=== PATIENT | female | born 1945 | race Caucasian/White ===

== ENCOUNTER → 2018-03-31 17:08 | Outpatient (CLI) | payer OTHER, SELFPAY ==
[2018-03-31 18:09] LABS: Hemoglobin A1C% w Est Avg Glu 5.5 % (4.0-6.0)
[2018-03-31 18:14] LABS: Alanine Aminotransferase 16 IU/L (9-52); Albumin Globulin Ratio 1.1 (1.0-2.8); Alkaline Phosphatase 73 U/L (38-126); Aspartate Aminotransferase 22 IU/L (14-36); BUN Creatinine Ratio 33.8 (6-22); Bilirubin Total 0.3 mg/dL (0.2-1.3); Blood Urea Nitrogen 27 mg/dL (7-17); Calcium 8.9 mg/dL (8.4-10.2); Carbon Dioxide 29 mmol/L (22-32); Chloride 102 mmol/L (98-107); Creatinine Urine Random 37.4 mg/dL; Estimated Glomerular Filt Rate > 60.0 mL/min (>60); Globulin 3.5 g/dL (1.7-4.1); Glucose 87 mg/dL (80-110); HEMOLYSIS < 15 (0-50); Potassium 4.4 mmol/L (3.4-5.1); Sodium 141 mmol/L (137-145); Total Protein 7.5 g/dL (6.3-8.2)
[2018-03-31 18:25] LABS: Microalbumin Urine Random < 0.6 mg/dL (0-1.6)
== END ==
PROVIDERS: Family Provider Physician Assistant; PCP Physician Assistant; Visit Provider Physician Assistant
DX: I10 Essential (primary) hypertension (principal); R73.01 Impaired fasting glucose; E66.01 Morbid (severe) obesity due to excess calories
CPT/HCPCS: 80053; 82043; 82570; 83036

== ENCOUNTER → 2018-08-09 14:01 | Outpatient (CLI) | payer OTHER, SELFPAY ==
--- NOTE | 2018-08-09 14:03 | DI.RAD.S_ITS ---
PROCEDURE: XR WRIST LT MIN 3V INDICATIONS: wrist pain and deformity TECHNIQUE: 4 views of the wrist were acquired. COMPARISON: [facility], , WRIST MINIMUM 3 VIEWS LEFT, 03/23/2011, 12:35. FINDINGS: Bones: Prominent degenerative changes are identified involving the joints of the wrist which has resulted in difficulty evaluating for subtle fractures. No displaced fracture or dislocation is identified. There are severe degenerative changes present involving the distal radioulnar joint and basal joints of the thumb. There also are prominent degenerative changes of the capitolunate joint. Deformity of the distal radius probably is related to previous injury. Widening of the scapholunate joint is noted. No suspicious osseous lesions or dislocations are evident. Degenerative changes involving the metacarpophalangeal and interphalangeal joints of the image portions of the hand are present. Soft tissues: No suspicious soft tissue calcifications. However, chondrocalcinosis probably is present within it the radiocarpal joint. There may be subcutaneous edema about the wrist. IMPRESSION: 1. No displaced/acute fractures of the wrist. 2. Advanced degenerative changes involving the basal joints of the thumb and distal radial ulnar joint. Dictated by: Santosh Starr M.D. on 08/09/2018 at 13:17 Approved by: Santosh Starr M.D. on 08/09/2018 at 13:20
== END ==
PROVIDERS: Family Provider Physician Assistant; PCP Physician Assistant; Visit Provider Physician Assistant
DX: M25.532 Pain in left wrist (principal); M19.042 Primary osteoarthritis, left hand
CPT/HCPCS: 73110

== ENCOUNTER → 2019-03-28 12:50 | Outpatient (CLI) | payer OTHER, SELFPAY ==
--- NOTE | 2019-03-28 | DI.MG.S_ITS ---
BILATERAL DIGITAL SCREENING MAMMOGRAM 3D/2D WITH CAD: 03/28/2019 CLINICAL: Routine screening. Family history of breast cancer. Comparison is made to exams dated: 03/24/2017 mammogram, 12/30/2015 mammogram, and 01/08/2015 mammogram - [facility]. There are scattered fibroglandular elements in both breasts. Current study was also evaluated with a Computer Aided Detection (CAD) system. No significant masses, calcifications, or other findings are seen in either breast. There has been no significant interval change. IMPRESSION: NEGATIVE There is no mammographic evidence of malignancy. A 1 year screening mammogram is recommended. This exam was interpreted at Station ID: [id number]. NOTE: For mammograms, a report in lay terms will be sent to the patient. Approximately 15% of breast malignancies will not be visualized mammographically. In the management of a palpable breast mass, a negative mammogram must not discourage biopsy of a clinically suspicious lesion. Electronically Signed By: Angel pacheco/kenji:03/30/2019 17:14:17 letter sent: Normal Exam ACR BI-RADS Category 1: Negative [id number]
== END ==
PROVIDERS: Family Provider Physician Assistant; PCP Physician Assistant; Visit Provider Physician Assistant
DX: Z12.31 Encounter for screening mammogram for malignant neoplasm of breast (principal); Z80.3 Family history of malignant neoplasm of breast
CPT/HCPCS: 77063; 77067

== ENCOUNTER → 2019-08-02 16:39 | Outpatient (CLI) | payer OTHER, SELFPAY ==
[2019-08-02 17:18] LABS: Alanine Aminotransferase 14 IU/L (<35); Albumin 4.2 g/dL (3.5-5.0); Albumin Globulin Ratio 1.3 (1.0-2.8); Alkaline Phosphatase 62 U/L (38-126); Aspartate Aminotransferase 26 IU/L (14-36); Bilirubin Total 0.7 mg/dL (0.2-1.3); Blood Urea Nitrogen 16 mg/dL (7-17); Calcium 9.3 mg/dL (8.4-10.2); Carbon Dioxide 29 mmol/L (22-32); Chloride 101 mmol/L (98-107); Estimated Glomerular Filt Rate > 60.0 mL/min (>60); Globulin 3.3 g/dL (1.7-4.1); Glucose 98 mg/dL (80-110); HEMOLYSIS < 15 (0-50); Potassium 4.6 mmol/L (3.4-5.1); Sodium 139 mmol/L (137-145); Total Protein 7.5 g/dL (6.3-8.2)
[2019-08-02 18:23] LABS: Microalbumi Creatinin Ratio Ur 46.7 ug/mg CR (<30); Microalbumin Urine Random 6.5 mg/dL (0-1.6)
== END ==
PROVIDERS: PCP Physician Assistant; Visit Provider Physician Assistant
DX: E66.01 Morbid (severe) obesity due to excess calories (principal); I10 Essential (primary) hypertension
CPT/HCPCS: 36415; 80053; 82043; 82570

== ENCOUNTER 2019-08-14 07:32 | Day surgery (SDC) | payer OTHER, SELFPAY ==
[2019-08-14] VITALS (7 sets, daily range): BP systolic 137–180; BP diastolic 67–91; PULSE 63–76; RESP 14–21; TEMP 36.1–36.8; O2SAT 96–99; BMI 49.4
--- NOTE | 2019-08-14 | PATH_ITS ---
[facility] Accession Number: [id number] . 01 Material submitted: . PART A: colon - COLON POLYP AT 75 CM PART B: colon - BIOPSY LESION AT 35 CM . 02 Diagnosis: A. Colon, Polyp at 75 cm, Biopsy: Tubular adenoma. . B. Colon, Lesion at 35 cm, Biopsy: Sessile serrated adenoma. MRV 08/15/2019 1056 Local . 02 Electronically signed: . Urmila Juarez MD, Pathologist NPI- [id number] . 01 Gross description: . Part A: COLON POLYP AT 75 CM: Received in formalin are 3 fragment(s) of casillas, soft tissue measuring 0.1 x 0.1 x 0.1 cm to 0.3 x 0.2 x 0.2 cm submitted entirely in 1 cassette(s) Part B: BIOPSY LESION AT 35 CM: Received in formalin are multiple fragment(s) of casillas, soft tissue measuring 0.1 x 0.1 x 0.1 cm to 0.4 x 0.3 x 0.2 cm submitted entirely in 1 cassette(s) /[facility] [place] 08/14/2019 1925 Local . 02 Pathologist provided ICD-10: D12.6 . 02 CPT . 499051, [id number] Performed at: 01 [facility] [address], [place], [place] [id number] MD Angel Raygoza MD Phone: [phone] Performed at: 02 [facility] [address] [place], [place] [id number] MD Urmila Juarez MD Phone: [phone]
[2019-08-14] MEDS: SODIUM CHLORIDE 0.9% 1,000 ML 200 ML IV (08:20)
--- NOTE | 2019-08-14 08:49 | PM.HP.1 ---
History of Present Illness History of Present Illness Date Patient Seen: 08/14/19 Time Patient Seen: 08:49 Chief complaint: [id number] Narrative: The patient is a woman here for screening colonoscopy. Her last exam was 3 years ago. Mother had colon cancer and apparently she has had multiple polyps. Patient History Medical History (Updated 05/07/19 @ 15:44 by Kristina Pabon PA-C) Cataract, left eye (Resolved ~06/2016) Colon polyps (Resolved 04/2010) Darier's disease (Chronic) Hypertension (Chronic) Osteoarthritis (Acute ~12/2017) Osteopenia (Chronic ~2016) Renal insufficiency, mild (Chronic ~02/2016) Surgical History (Updated 05/25/18 @ 14:25 by Anahy Wayne LPN) Hx of cataract surgery (Resolved 06/2016) Hx of section (Resolved) Hx of colonoscopy with polypectomy (Resolved 04/2010) Hx of vitrectomy (Resolved) Family & Social History Family History (Updated 05/25/18 @ 14:27 by Anahy Wayne LPN) Father Cancer Mother Cancer Brother Cancer Social History: household members none Tobacco & Substance use: Smoking Status Never smoker alcohol intake never Meds Home Medications and Allergies Home Medications Medication Instructions Recorded Confirmed Type [PROBIOTIC] 1 tab PO QDAY #0 07/19/16 08/14/19 History furosemide 20 mg tablet 20 mg PO DAILY PRN #30 tab 01/31/18 08/14/19 Rx B12 500 mcg PO DAILY #30 tab 04/06/18 08/14/19 Rx tumeric 500 mg PO DAILY #30 tab 04/06/18 08/14/19 Rx vitamin D3 See Rx Instructions .ROUTE 04/06/18 08/14/19 Rx .COMPLEX #30 tab vitamin E See Rx Instructions PO DAILY #30 04/06/18 08/14/19 Rx tab Ocuvite See Rx Instructions .ROUTE .COMPLEX 05/29/18 08/14/19 History telmisartan 40 mg tablet 40 mg PO DAILY #90 tab 07/19/18 08/14/19 Rx fluocinolone and shower cap 0.01 % 0.01 % TOP .PRN #118.28 ml 10/20/18 08/14/19 Rx scalp oil and shower cap ketoconazole 2 % shampoo 1 applictn TOP ONCE PRN ml 02/14/19 08/14/19 History mupirocin 2 % topical ointment 1 applictn TOP BID #30 gram 02/19/19 08/14/19 Rx varicella-zoster gE-AS01B (PF) 50 50 mcg IM ONCE #1 each 05/08/19 08/14/19 Rx mcg/0.5 mL IM susp, kit carvedilol 3.125 mg tablet 3.125 mg PO BID #180 tab 06/18/19 08/14/19 Rx Allergies Allergy/AdvReac Type Severity Reaction Status Date / Time cetirizine Allergy Severe CHEST PAIN Verified 08/14/19 07:48 ELEPHANT SAT ON MY CHEST FOR 2 DAYS amlodipine [AMLODIPINE] Allergy Intermediate Pain in Verified 08/14/19 07:48 fingers/hands procaine Allergy Mild RASH AND Verified 08/14/19 07:48 BLISTERS hydrochlorothiazide AdvReac Severe Renal Verified 08/14/19 07:48 [HYDROCHLOROTHIAZIDE] insufficiency - severe prednisone [PREDNISONE] AdvReac Intermediate Elevated Verified 08/14/19 07:48 blood pressure adhesive [ADHESIVE] AdvReac Mild Bandaids - Verified 08/14/19 07:48 causes redness of skin [place] family Allergy Intermediate BAD RASH Uncoded 08/14/19 07:48 CLASS: 72:00.00 - LOCAL Allergy Unknown PATIENT Uncoded 08/14/19 07:48 ANESTHETICS CAN'T REMEMBER TEGADERM FILM AdvReac Intermediate REDNESS Uncoded 08/14/19 07:48 AND ITCHING Review of Systems Review of Systems ROS Unobtainable: All systems reviewed & are unremarkable except as noted in HPI and below Respiratory Comments: Chronic shortness of breath with exertion Exam Vital Signs (past 8 hours): - 08/14/19 08:09 Temperature 97.3 F L Pulse Rate 76 Respiratory Rate 21 Blood Pressure 180/91 H Pulse Oximetry 97 Oxygen Delivery Method Room Air Narrative Exam Narrative: Morbid obesity in no apparent distress. Her eyes are nonicteric. Lungs are clear to auscultation no rales or rhonchi. Heart regular rate and rhythm without murmur gallop. Abdomen is protuberant soft nontender without obvious mass Assessment & Plan Assessment & Plan narrative: The patient for a screening colonoscopy. I have discussed the procedure with them. Risks of bleeding, perforation which would necessitate major operation, failure to find remove all lesions, the potential tattoo were all discussed. All questions were answered. They wished to proceed.
--- NOTE | 2019-08-14 08:54 | PM.PREOP ---
Pre-operative Note Interval Note History & Physical reviewed/Exam performed by Physician: Yes Changes to H&P: No ASA Class (for procedural sedation): III
[2019-08-14] MEDS: fentaNYL 250 MCG/5 ML INJ IV (09:08)
[2019-08-14] MEDS: MIDAZOLAM 5 MG/5 ML VIAL IV (09:08)
--- NOTE | 2019-08-14 09:29 | PM.OP.ENDO ---
Operative Date/Time/Diagnoses Date of procedure: 08/14/19 Time of procedure: 09:29 Pre-op diagnosis: History of polyps. Last exam 3 years ago. Post-op diagnosis: same Procedure & Clinicians Study performed: Colonoscopy with cold biopsy and hot snare polypectomy Same procedure as scheduled: Yes Procedure Notes SCOAP/Timeout: Perform Procedure in detail: The patient was placed in the left lateral decubitus position and underwent IV sedation directed by the surgeon consisting of fentanyl and Versed. Digital exam was remarkable for decreased sphincter tone. The scope was inserted and advanced through the rectum into the sigmoid, descending, transverse, and ascending colon. Pressure was applied we made our way into the cecum. The cecum was reached identified by the ileocecal valve . The scope was gradually brought out. Polyps were found at 75 cm and 35 cm. Lesion is 75 was removed with cold biopsy forceps and the lesion at 35 was a very unusual appearing lesion. It was raised and flat but almost looked like the contain lacteals. It did not have the typical appearance of a polyp but the mucosa was clearly different than the surroundings. It was removed in pieces with hot snare. The residual was cauterized. The patient was noted to have sigmoid diverticulosis. The scope ultimately was retroflexed in the rectum. The appearance was remarkable for hemorrhoids. The scope was removed and the patient tolerated the procedure well. The prep was very good Scope withdrawal time: 7 minutes(14 total) Sedation minutes: 32 Findings: diverticulosis (Sigmoid) and polyp Specimen(s): other (Polyps) Complications: none Post-procedure Recommendations: Colonscopy in 5 years (If in good health) Follow up: as needed Disposition: PACU
--- NOTE | 2019-08-14 10:14 | SUR.PHASEII ---
pt tolerating juice, denies any pain or discomfort, waiting for discharge orders.
== END 2019-08-14 10:53 | disposition home or self-care (01) ==
PROVIDERS: PCP Physician Assistant; Visit Provider Specialist
PROC: 0DJD8ZZ Inspection of Lower Intestinal Tract, Via Natural or Artificial Opening Endoscopic (ICD-10-PCS; CPT 45378; principal; 2019-08-14 08:45)
DX: Z12.11 Encounter for screening for malignant neoplasm of colon (principal); Z86.010 Personal history of colon polyps; I10 Essential (primary) hypertension; N18.9 Chronic kidney disease, unspecified; K57.30 Diverticulosis of large intestine without perforation or abscess without bleeding; D12.6 Benign neoplasm of colon, unspecified
CPT/HCPCS: 45385; 45380; 99152; 99153; J2250; J3010

== ENCOUNTER → 2020-02-21 10:56 | Outpatient (CLI) | payer OTHER, SELFPAY ==
[2020-02-21 13:03] LABS: Creatinine Urine Random 46.1 mg/dL
[2020-02-21 13:07] LABS: Blood Urea Nitrogen 32 mg/dL (7-17); Calcium 9.5 mg/dL (8.4-10.2); Carbon Dioxide 29 mmol/L (22-32); Chloride 101 mmol/L (98-107); Estimated Glomerular Filt Rate > 60.0 mL/min (>60); Glucose 105 mg/dL (80-110); HEMOLYSIS < 15 (0-50); Potassium 4.4 mmol/L (3.4-5.1); Sodium 138 mmol/L (137-145)
[2020-02-21 13:11] LABS: Microalbumin Urine Random < 0.6 mg/dL (0-1.6)
== END ==
PROVIDERS: PCP Family Medicine; Referring Provider Physician Assistant; Visit Provider Physician Assistant
DX: I10 Essential (primary) hypertension (principal)
CPT/HCPCS: 36415; 80048; 82043; 82570

== ENCOUNTER → 2020-06-24 11:18 | Outpatient (CLI) | payer OTHER, SELFPAY ==
[2020-06-24 12:59] LABS: Cholesterol 155 mg/dL (140-199); HDL Cholesterol 52 mg/dL (40-60); LDL Cholesterol Calculated 83 mg/dL (<100); Triglycerides 99 mg/dL (35-150)
== END ==
PROVIDERS: PCP Family Medicine; Referring Provider Internal Medicine Cardiovascular Disease; Visit Provider Internal Medicine Cardiovascular Disease
DX: I21.4 Non-ST elevation (NSTEMI) myocardial infarction (principal); Z95.5 Presence of coronary angioplasty implant and graft; E78.5 Hyperlipidemia, unspecified
CPT/HCPCS: 36415; 80061

== ENCOUNTER → 2020-07-26 14:30 | Outpatient (CLI) | payer OTHER, MEDICAID, SELFPAY ==
[2020-07-28 07:59] LABS: COVID19 Sendout Not Detected (Not Detect)
== END ==
PROVIDERS: PCP Family Medicine; Visit Provider Physician Assistant
DX: Z11.59 Encounter for screening for other viral diseases (principal)
CPT/HCPCS: 87635

== ENCOUNTER → 2020-07-28 09:09 | Outpatient (CLI) | payer OTHER, MEDICAID, SELFPAY ==
[2020-07-28 10:50] LABS: Alanine Aminotransferase 16 IU/L (<35); Albumin 3.9 g/dL (3.5-5.0); Albumin Globulin Ratio 1.1 (1.0-2.8); Alkaline Phosphatase 67 U/L (38-126); Aspartate Aminotransferase 30 IU/L (14-36); Bilirubin Total 0.9 mg/dL (0.2-1.3); Bilirubin Unconjugated 0.7 mg/dL (0.0-1.1); Cholesterol 114 mg/dL (140-199); Globulin 3.5 g/dL (1.7-4.1); HDL Cholesterol 45 mg/dL (40-60); HEMOLYSIS < 15 (0-50); LDL Cholesterol Calculated 54 mg/dL (<100); Total Protein 7.4 g/dL (6.3-8.2); Triglycerides 73 mg/dL (35-150)
== END ==
PROVIDERS: PCP Family Medicine; Referring Provider Internal Medicine Cardiovascular Disease; Visit Provider Internal Medicine Cardiovascular Disease
DX: I10 Essential (primary) hypertension (principal); E78.5 Hyperlipidemia, unspecified
CPT/HCPCS: 36415; 80061; 80076

== ENCOUNTER → 2020-08-20 12:48 | Outpatient (CLI) | payer OTHER, MEDICAID, SELFPAY ==
[2020-08-20 13:42] LABS: BUN Creatinine Ratio 26.3 (6-22); Blood Urea Nitrogen 20 mg/dL (7-17); Calcium 9.2 mg/dL (8.4-10.2); Carbon Dioxide 33 mmol/L (22-32); Chloride 99 mmol/L (98-107); Estimated Glomerular Filt Rate > 60.0 mL/min (>60); Glucose 94 mg/dL (80-110); HEMOLYSIS < 15 (0-50); Potassium 4.4 mmol/L (3.4-5.1); Sodium 137 mmol/L (137-145)
== END ==
PROVIDERS: PCP Family Medicine; Referring Provider Internal Medicine Cardiovascular Disease; Visit Provider Internal Medicine Cardiovascular Disease
DX: I10 Essential (primary) hypertension (principal)
CPT/HCPCS: 36415; 80048

== ENCOUNTER 2020-09-03 10:30 | Outpatient (RCR) | payer OTHER, MEDICAID, SELFPAY | END 2020-09-03 12:30 | LOC: CAR 10:30 | PROVIDERS: PCP Family Medicine; Referring Provider Internal Medicine Cardiovascular Disease; Visit Provider Internal Medicine Cardiovascular Disease | DX: I21.4 Non-ST elevation (NSTEMI) myocardial infarction (principal); Z95.5 Presence of coronary angioplasty implant and graft | CPT/HCPCS: 93798 ==

== ENCOUNTER → 2020-10-21 14:59 | Outpatient (CLI) | payer OTHER, MEDICAID, SELFPAY ==
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
== END ==
PROVIDERS: PCP Family Medicine; Referring Provider Family Medicine; Visit Provider Family Medicine
DX: E66.09 Other obesity due to excess calories (principal); Z71.3 Dietary counseling and surveillance
CPT/HCPCS: 97802

== ENCOUNTER → 2021-03-17 12:05 | Outpatient (CLI) | payer OTHER, MEDICAID, SELFPAY ==
--- NOTE | 2021-03-17 12:10 | DI.RAD.S_ITS ---
PROCEDURE: XR CERVICAL SPINE 2V OR 3V INDICATIONS: ground level fall, neck pain TECHNIQUE: 4 view(s) of the cervical spine were acquired. COMPARISON: [facility], CR, XR CHEST 1 VIEW, 03/16/2020, 16:52. FINDINGS: Bones: No fractures or dislocations to the T1 level. The lateral masses of C1 appear intact on the odontoid view. No suspicious bony lesions. Multilevel disc degeneration, severe at the C4-C5, C5-C6, C6-C7 and C7-T1 levels. Mild multilevel mid and lower cervical spine facet joint arthropathy and uncovertebral hypertrophy. Soft tissues: No prevertebral soft tissue swelling. Prominence of the right paratracheal soft tissues again noted. IMPRESSION: 1. Loss of lordosis and multilevel spondylosis. 2. Prominence of the right paratracheal soft tissues again noted as was seen on prior chest radiograph which may be related to lymph nodes versus mass such as substernal thyroid. If indicated, chest CT could be performed for further assessment. Dictated by: Avel BELTRAN Interpreted: Tahir Mancuso MD on 03/17/2021 at 13:32 Transcribed by: OPAL on 03/17/2021 at 13:35 Approved by: Tahir Mancuso M.D. on 03/17/2021 at 15:37
== END ==
PROVIDERS: PCP Family Medicine; Referring Provider Nurse Practitioner Family; Visit Provider Nurse Practitioner Family
DX: M47.812 Spondylosis without myelopathy or radiculopathy, cervical region (principal); M50.321 Other cervical disc degeneration at C4-C5 level
CPT/HCPCS: 72040

== ENCOUNTER → 2021-03-30 11:45 | Outpatient (CLI) | payer OTHER, MEDICAID, SELFPAY ==
--- NOTE | 2021-03-30 11:46 | DI.CT.S_ITS ---
PROCEDURE: CT CHEST WO CON INDICATIONS: abnormal xray TECHNIQUE: Noncontrast 5 mm thick sections acquired from the pulmonary apices to the posterior costophrenic angles. 1 mm lung window, 5 mm thick coronal and sagittal and 7 mm axial MIP reformats were then acquired. For radiation dose reduction, the following was used: automated exposure control, adjustment of mA and/or kV according to patient size. COMPARISON: [facility], CR, XR CHEST 1 VIEW, 03/16/2020, 16:52. [facility], CR, XR CERVICAL SPINE 2V OR 3V, 03/17/2021, 12:10. FINDINGS: Image quality: Excellent. Lungs and pleura: No acute air space opacities. No pleural effusions or pneumothorax. Central and peripheral airways are patent and normal in caliber. Mediastinum: Heart size is normal. No pericardial effusion. No mediastinal adenopathy by size criteria. Thoracic aorta and central pulmonary arteries are normal in size. Esophagus is normal in caliber. No hiatal hernia. Densely calcified lymph nodes in the right hilum measures 2.4 x 1.0 cm in total. No pulmonary mass lesion present. Bones and chest wall: No suspicious bony lesions. No vertebral body compression fractures. 1 cm lymph node noted in the left axilla as well. Thyroid gland unremarkable . Abdomen: Visualized upper abdominal solid organs and bowel loops appear normal in the absence of contrast. IMPRESSION: Right paratracheal soft tissue on the prior radiograph corresponds with a tortuous vascularity. Incidental right hilar calcified lymph nodes probably reflects prior granulomatous disease. Incidental 1 cm left axillary node is not enlarged by size criteria but could be followed by ultrasound to assure stability. Dictated by: Harpreet Rome M.D. on 03/30/2021 at 14:02 Approved by: Harpreet Rome M.D. on 03/30/2021 at 14:26
== END ==
PROVIDERS: PCP Family Medicine; Referring Provider Nurse Practitioner Family; Visit Provider Nurse Practitioner Family
DX: R93.89 Abnormal findings on diagnostic imaging of other specified body structures (principal); R91.8 Other nonspecific abnormal finding of lung field
CPT/HCPCS: 71250

== ENCOUNTER → 2021-04-27 12:38 | Outpatient (CLI) | payer OTHER, MEDICAID, SELFPAY ==
[2021-04-27 13:40] LABS: Add Manual Diff / Slide Review NO; Basophils Absolute Auto 0 /uL (0-100); Basophils Percent Auto 0.5 % (0-2); Eosinophils Absolute Auto 100 /uL (0-450); Eosinophils Percent Auto 1.6 % (2-4); Hematocrit 37.5 % (36-46); Hemoglobin 12.3 g/dL (12.0-16.0); Lymphocytes Absolute Auto 1000 /uL (1100-4500); Lymphocytes Percent Auto 21.9 % (25-40); Mean Corpuscular HGB Conc 32.7 % (30-36); Mean Corpuscular Hemoglobin 28.1 PG (26-34); Mean Corpuscular Volume 85.8 fL (80-100); Monocytes Absolute Auto 600 /uL (0-900); Monocytes Percent Auto 13.7 % (3-14); Neutrophils Absolute Auto 2900 /uL (1500-7000); Neutrophils Percent Auto 62.3 % (50-75); Platelet Count 171 X10^3/uL (150-400); Red Blood Cell Count 4.37 X10^6/uL (4.0-5.2); Red Cell Distribution Width 14.9 % (11.6-14.8); White Blood Cell Count 4.6 X10^3/uL (4.5-11.0)
[2021-04-27 14:18] LABS: Alanine Aminotransferase 22 IU/L (<35); Albumin 3.7 g/dL (3.5-5.0); Albumin Globulin Ratio 1.1 (1.0-2.8); Alkaline Phosphatase 80 U/L (38-126); Aspartate Aminotransferase 42 IU/L (14-36); BUN Creatinine Ratio 16.3 (6-22); Bilirubin Total 0.5 mg/dL (0.2-1.3); Blood Urea Nitrogen 13 mg/dL (7-17); Calcium 8.8 mg/dL (8.4-10.2); Carbon Dioxide 30 mmol/L (22-32); Chloride 103 mmol/L (98-107); Estimated Glomerular Filt Rate > 60.0 mL/min (>60); Globulin 3.5 g/dL (1.7-4.1); Glucose 110 mg/dL (80-110); HEMOLYSIS < 15 (0-50); Sodium 137 mmol/L (137-145); Total Protein 7.2 g/dL (6.3-8.2)
== END ==
PROVIDERS: PCP Family Medicine; Referring Provider Family Medicine; Visit Provider Family Medicine
DX: I10 Essential (primary) hypertension (principal); I25.10 Atherosclerotic heart disease of native coronary artery without angina pectoris; R53.83 Other fatigue
CPT/HCPCS: 36415; 80053; 84443; 85025

== ENCOUNTER → 2021-05-02 09:08 | Outpatient (ROUT) | payer OTHER, MEDICAID, SELFPAY ==
[2021-05-02 09:36] LABS: COVID19 -Nasal RAPID POSITIVE (Negative)
== END ==
PROVIDERS: PCP Family Medicine; Visit Provider Physician Assistant
DX: U07.1 COVID-19 (principal)
CPT/HCPCS: 87635

== ENCOUNTER 2021-05-06 14:15 | Inpatient (IN) | payer OTHER, MEDICAID, SELFPAY ==
[2021-05-06] VITALS (15 sets, daily range): BP systolic 122–181; BP diastolic 59–77; PULSE 68–94; RESP 15–33; TEMP 36.5–37.7; O2SAT 91–97; BMI 49.9
--- NOTE | 2021-05-06 14:29 | DI.RAD.S_ITS ---
PROCEDURE: XR CHEST 1V INDICATIONS: Flu like symptoms TECHNIQUE: One view of the chest was acquired. COMPARISON: [facility], CT, CT CHEST WO CON, 03/30/2021, 11:54. FINDINGS: Surgical changes and devices: None. Lungs and pleura: Bilateral peripheral ground-glass infiltrates. No pleural effusions or pneumothorax. Mediastinum: Mediastinal contours appear normal. Heart size is normal. Bones and chest wall: No suspicious bony lesions. Overlying soft tissues appear unremarkable. IMPRESSION: Bilateral peripheral ground-glass infiltrates suspicious for atypical pneumonia. Dictated by: Paco Austin M.D. on 05/06/2021 at 15:34 Approved by: Paco Austin M.D. on 05/06/2021 at 15:35
[2021-05-06 15:04] LABS: Add Manual Diff / Slide Review NO; Basophils Absolute Auto 0 /uL (0-100); Basophils Percent Auto 0.2 % (0-2); Eosinophils Absolute Auto 0 /uL (0-450); Eosinophils Percent Auto 0.4 % (2-4); Hematocrit 40.1 % (36-46); Hemoglobin 13.2 g/dL (12.0-16.0); Lymphocytes Absolute Auto 1200 /uL (1100-4500); Lymphocytes Percent Auto 11.7 % (25-40); Mean Corpuscular HGB Conc 32.9 % (30-36); Mean Corpuscular Hemoglobin 27.4 PG (26-34); Mean Corpuscular Volume 83.3 fL (80-100); Monocytes Absolute Auto 700 /uL (0-900); Monocytes Percent Auto 6.4 % (3-14); Neutrophils Absolute Auto 8500 /uL (1500-7000); Neutrophils Percent Auto 81.3 % (50-75); Platelet Count 211 X10^3/uL (150-400); Red Blood Cell Count 4.81 X10^6/uL (4.0-5.2); Red Cell Distribution Width 14.6 % (11.6-14.8); White Blood Cell Count 10.5 X10^3/uL (4.5-11.0)
--- NOTE | 2021-05-06 15:07 | ED.GENADULT ---
HPI - General Adult General Chief complaint: Shortness of Breath/Dyspnea Stated complaint: Covid +/pneumonia x4days Time Seen by Provider: 05/06/21 14:32 Source: patient and other Mode of arrival: Wheelchair History of Present Illness HPI narrative: Patient is a 75-year-old female. States she started having symptoms approximately 12 days ago. Symptoms started with GI symptoms and potentially some change in taste. She was not tested until approximately 6 days ago when she tested positive for COVID-19. Since that time she has had cough, she has a chronic dermatologic issue that she states has worsened since this time as well. She has been very fatigued. Cannot get up and walk. She was brought to the emergency department today by a friend for what apparently was some shortness of breath at home over the patient thinks that she is not all that short of breath. She denies chest pain. She states that she has been eating and drinking but not as much as she has been. She is unvaccinated against COVID-19. Related Data Home Medications Medication Instructions Recorded Confirmed [PROBIOTIC] 1 tab PO QDAY #0 07/19/16 05/02/21 aspirin 81 mg chewable tablet 81 mg PO DAILY 03/21/20 05/02/21 atorvastatin 40 mg tablet 40 mg PO tab 03/21/20 05/02/21 C,E,zinc,copper [id number] PO 09/24/20 05/02/21 [Ocuvite Adult 50 Plus] cholecalciferol (vitamin D3) PO 09/24/20 05/02/21 cyanocobalamin (vitamin B-12) PO 09/24/20 05/02/21 turmeric PO 09/24/20 05/02/21 vitamin E acetate PO 09/24/20 05/02/21 Previous Rx's Medication Instructions Recorded varicella-zoster glycoE [id number] 50 mcg IM ONCE #1 each 05/08/19 adj(PF) 50 mcg/0.5 mL IM susp, kit (Shingrix (PF)) telmisartan 40 mg tablet See Rx Instructions .ROUTE 09/17/19 .COMPLEX #90 tablet furosemide 20 mg tablet 20 mg PO DAILY PRN #30 tab 10/29/19 betamethasone dipropionate 0.05 % 1 applictn TOP TID PRN #45 gram 01/14/20 topical ointment carvedilol 3.125 mg tablet 3.125 mg PO BID #180 tab 04/07/20 mupirocin 2 % topical ointment See Rx Instructions .ROUTE 05/19/20 .COMPLEX #30 gram clobetasol 0.05 % scalp solution See Rx Instructions .ROUTE 05/21/20 .COMPLEX #50 milliliter azelastine 137 mcg (0.1 %) nasal 1 spray INTRANASAL BID #30 ml 05/02/21 spray aerosol fluocinolone 0.01 % scalp oil and 1 ea TOP .PRN #118.28 ml 05/02/21 shower cap ketoconazole 2 % shampoo 1 applic TOP .Q3DAYS PRN #120 ml 05/02/21 olopatadine 0.2 % eye drops 1 drp EYE-BOTH DAILY PRN #2.5 ml 05/02/21 (Pataday Once Daily Relief) Allergies Allergy/AdvReac Type Severity Reaction Status Date / Time cetirizine Allergy Severe CHEST PAIN Verified 05/06/21 15:43 ELEPHANT SAT ON MY CHEST FOR 2 DAYS adhesive tape Allergy Intermediate Redness of Verified 05/06/21 15:43 Skin amlodipine [AMLODIPINE] Allergy Intermediate Pain in Verified 05/06/21 15:43 fingers/hands dog dander Allergy Intermediate Rash Verified 05/06/21 15:43 procaine Allergy Mild RASH AND Verified 05/06/21 15:43 BLISTERS Anesthetics - Amide Type - Allergy Unknown Verified 05/06/21 15:43 Select A Anesthetics - Valentine Type- Allergy Unknown Verified 05/06/21 15:43 Parabens hydrochlorothiazide AdvReac Severe Renal Verified 05/06/21 15:43 [HYDROCHLOROTHIAZIDE] insufficiency - severe prednisone [PREDNISONE] AdvReac Intermediate Elevated Verified 05/06/21 15:43 blood pressure adhesive [ADHESIVE] AdvReac Mild Bandaids - Verified 05/06/21 15:43 causes redness of skin Review of Systems Constitutional Constitutional: Reports fever(s) and Reports lethargy Eyes Eyes: Reports system reviewed and no additional complaints, except as documented ENT Comments: Decreased in sensation taste Cardiovascular Cardiovascular: Denies chest pain and Reports dyspnea Respiratory Respiratory: Reports cough, Denies pain on inspiration and Reports dyspnea Gastrointestinal Gastrointestinal: Reports system reviewed and no additional complaints, except as documented Genitourinary Genitourinary: Reports system reviewed and no additional complaints, except as documented Musculoskeletal Musculoskeletal: Reports system reviewed and no additional complaints, except as documented Integumentary/Breasts Skin/Breast: Reports as per HPI Neurologic Neurologic: Reports system reviewed and no additional complaints, except as documented Endocrine Endocrine: Reports system reviewed and no additional complaints, except as documented Hematologic/Lymphatic On Anticoagulants: No Allergic/Immunologic Allergic/Immunologic: Reports system reviewed and no additional complaints, except as documented Patient History Medical History Carpal tunnel syndrome of right wrist Cataract, left eye (~06/2016) Cellulitis Colon polyps (04/2010) Coronary artery disease Darier's disease Hypertension Osteoarthritis (~12/2017) Osteopenia (~2016) Renal insufficiency, mild (~02/2016) Surgical History Hx of cataract surgery (06/2016) Hx of section Hx of colonoscopy with polypectomy (04/2010) Hx of vitrectomy Family History Father Cancer Mother Cancer Brother Cancer Social History household members: none Smoking Status: Never smoker second hand exposure: Yes alcohol intake: never substance use type: does not use Smoking Status: Never smoker Exam Initial Vital Signs Initial Vital Signs: Vital Signs Temperature 97.7 F 05/06/21 14:24 Pulse Rate 94 H 05/06/21 14:24 Respiratory Rate 22 05/06/21 14:24 Blood Pressure 124/70 05/06/21 14:24 Pulse Oximetry 92 05/06/21 14:24 Const General: cooperative and comfortable HENVT Head: atraumatic Resp Effort & Inspection: not labored and tachypneic Auscultation: rhonchi and wheezes Cardio Rate: regular rate Rhythm: regular rhythm GI Palpation: soft Skin Other: Patient has a systemic rash. There are areas that are crusting specifically on her forehead and around her eyes. She also has other maculopapular rashes. The seem to be located in the areas under her breast and under her pannus however she also has rash on the abdomen itself. There are no vesicles noted. No pustules noted Neuro General: patient alert, patient awake and moves all extremities Extrem General: capillary refill normal Psych Appearance: grossly normal and well kempt Course Orders Ordered: ED Orders 05/06/21 14:26 EKG-12 Lead Stat 05/06/21 14:27 Measure peak expiratory flow ONCE RT Consult Eval and Treat Now 05/06/21 14:29 XR chest 1V Stat 05/06/21 14:52 Blood Culture Stat 05/06/21 14:53 C-Reactive Protein Quant Stat Complete Blood Count AUTO DIFF Stat Comprehensive Metabolic Panel Stat D Dimer Stat Ferritin Stat Lactate (Lactic Acid) Stat Lactate Dehydrogenase Stat NT-proBNP (BNP-Adult 18+) Stat Procalcitonin Stat Troponin & CK Cardiac Panel Stat 05/06/21 15:44 Wound Culture and Gram Stain Stat Acetaminophen (Acetaminophen 325 Mg Tablet) 650 mg PO Q6HR PRN PRN Reason: Fever/Mild Pain (1-3) Aspirin (Aspirin 81 Mg Chew Tab) 81 mg PO DAILY [facility] Atorvastatin Calcium (Atorvastatin 20 Mg Tablet) 40 mg PO BEDTIME [facility] Dexamethasone (Dexamethasone 10 Mg/Ml Vial) 6 mg IV DAILY [facility] Enoxaparin Sodium (Enoxaparin 40 Mg/0.4 Ml Syringe) 40 mg SUBCUT BID [facility] Remdesivir 100 mg/ Sodium (Chloride) 250 mls @ 250 mls/hr IV DAILY [facility] Stop: 05/09/21 16:23 Ondansetron HCl (Ondansetron 4 Mg/2 Ml Inj) 4 mg IV Q8HR PRN PRN Reason: Nausea And Vomiting Discontinued Medications Dexamethasone (Dexamethasone 10 Mg/Ml Vial) 10 mg IV NOW ONE Stop: 05/06/21 15:41 Last Admin: 05/06/21 16:03 Dose: 10 mg Documented by: JONNIE Sodium Chloride (Normal Saline 0.9%) 1,000 mls @ 125 mls/hr IV CONT JASSON Last Infusion: 05/06/21 17:04 Dose: 125 mls/hr Documented by: Admin: 05/06/21 15:34 Dose: 125 mls/hr Documented by: JONNIE Remdesivir 200 mg/ Sodium (Chloride) 250 mls @ 250 mls/hr IV NOW ONE Stop: 05/06/21 15:41 Last Infusion: 05/06/21 17:05 Dose: 250 mls/hr Documented by: Admin: 05/06/21 16:32 Dose: 250 mls/hr Documented by: JONNIE Vital Signs Vital signs: Vital Signs - 8 hr 05/06/21 14:24 05/06/21 15:15 05/06/21 15:30 Temperature 97.7 F Pulse Rate 94 H 92 H 88 Respiratory Rate 22 33 H 25 H Blood Pressure 124/70 131/70 Pulse Oximetry 92 97 97 Medical Decision Making Lab Data Lab results reviewed: Yes I reviewed the patient's lab results. Result diagrams: 05/06/21 14:53 05/06/21 14:53 Labs: Lab Results 05/06/21 05/06/21 05/06/21 Range/Units 14:12 14:53 14:53 WBC 10.5 (4.5-11.0) X10^3/uL RBC 4.81 (4.0-5.2) X10^6/uL Hgb 13.2 (12.0-16.0) g/dL Hct 40.1 (36-46) % MCV 83.3 (80-100) fL MCH 27.4 (26-34) PG MCHC 32.9 (30-36) % RDW 14.6 (11.6-14.8) % Plt Count 211 (150-400) X10^3/uL Neut % (Auto) 81.3 H (50-75) % Lymph % (Auto) 11.7 L (25-40) % [place] % (Auto) 6.4 (3-14) % Eos % (Auto) 0.4 L (2-4) % Baso % (Auto) 0.2 (0-2) % Neut # (Auto) 8500 H (9743-4638) /uL Lymph # (Auto) 1200 (2137-8806) /uL [place] # (Auto) 700 (0-900) /uL Eos # (Auto) 0 (0-450) /uL Baso # (Auto) 0 (0-100) /uL D-Dimer (<230) ng/mL Sodium 133 L (137-145) mmol/L Potassium 4.1 (3.4-5.1) mmol/L Chloride 96 L (98-107) mmol/L Carbon Dioxide 28 (22-32) mmol/L BUN 30 H (7-17) mg/dL Creatinine 1.06 H (0.52-1.04) mg/dL Estimated GFR 50.4 L (>60) mL/min BUN/Creatinine Ratio 28.3 H (6-22) Glucose 123 H (80-110) mg/dL Lactate (0.7-2.1) mmol/L Calcium 8.3 L (8.4-10.2) mg/dL Ferritin (11-264) ng/mL Total Bilirubin 1.0 (0.2-1.3) mg/dL AST 56 H (14-36) IU/L ALT 23 (<35) IU/L Alkaline Phosphatase 68 (38-126) U/L Lactate Dehydrogenase (313-618) U/L Total Creatine Kinase (30-135) U/L CK-MB (CK-2) (<2.37) ng/mL CK-MB (CK-2) Rel Index (1.5-5.0) % Troponin I (0.01-0.034) ng/mL C-Reactive Protein (<1.0) mg/dL NT-Pro-B Natriuret Pep (<450) pg/mL Total Protein 7.1 (6.3-8.2) g/dL Albumin 3.7 (3.5-5.0) g/dL Globulin 3.4 (1.7-4.1) g/dL Albumin/Globulin Ratio 1.1 (1.0-2.8) Procalcitonin (<0.5) ng/mL Urine Color Yellow Urine Appearance Clear Urine pH 5.0 (4.5-8.0) Ur Specific [place] 1.025 (1.000-1.035) Urine Protein 2+ H (Negative) Urine Glucose (UA) Negative (Negative) g/dL Urine Ketones Trace H (NEGATIVE) Urine Occult Blood Trace-lysed (Negative) Urine Nitrate Negative (Negative) Urine Bilirubin 2+ H (NEGATIVE) Ur Bilirubin Confirm Negative (Negative) Urine Urobilinogen 0.2 (0.2) E.U./dL Ur Leukocyte Esterase Negative (NEGATIVE) Urine RBC None seen (0-5/HPF) Urine WBC None seen (0-5/HPF) Ur Renal Epithelial Cell 1-5/hpf H (0-1/HPF) Amorphous Sediment 2+ Urine Bacteria None seen (None) Granular Casts 1-5/lpf (None) Ur Culture Indicated? Cult not indicated 05/06/21 05/06/21 05/06/21 Range/Units 14:53 14:53 14:53 WBC (4.5-11.0) X10^3/uL RBC (4.0-5.2) X10^6/uL Hgb (12.0-16.0) g/dL Hct (36-46) % MCV (80-100) fL MCH (26-34) PG MCHC (30-36) % RDW (11.6-14.8) % Plt Count (150-400) X10^3/uL Neut % (Auto) (50-75) % Lymph % (Auto) (25-40) % [place] % (Auto) (3-14) % Eos % (Auto) (2-4) % Baso % (Auto) (0-2) % Neut # (Auto) (3138-3927) /uL Lymph # (Auto) (1130-4764) /uL [place] # (Auto) (0-900) /uL Eos # (Auto) (0-450) /uL Baso # (Auto) (0-100) /uL D-Dimer 929 H (<230) ng/mL Sodium (137-145) mmol/L Potassium (3.4-5.1) mmol/L Chloride (98-107) mmol/L Carbon Dioxide (22-32) mmol/L BUN (7-17) mg/dL Creatinine (0.52-1.04) mg/dL Estimated GFR (>60) mL/min BUN/Creatinine Ratio (6-22) Glucose (80-110) mg/dL Lactate 2.1 (0.7-2.1) mmol/L Calcium (8.4-10.2) mg/dL Ferritin (11-264) ng/mL Total Bilirubin (0.2-1.3) mg/dL AST (14-36) IU/L ALT (<35) IU/L Alkaline Phosphatase (38-126) U/L Lactate Dehydrogenase (313-618) U/L Total Creatine Kinase (30-135) U/L CK-MB (CK-2) (<2.37) ng/mL CK-MB (CK-2) Rel Index (1.5-5.0) % Troponin I (0.01-0.034) ng/mL C-Reactive Protein (<1.0) mg/dL NT-Pro-B Natriuret Pep (<450) pg/mL Total Protein (6.3-8.2) g/dL Albumin (3.5-5.0) g/dL Globulin (1.7-4.1) g/dL Albumin/Globulin Ratio (1.0-2.8) Procalcitonin 0.28 (<0.5) ng/mL Urine Color Urine Appearance Urine pH (4.5-8.0) Ur Specific [place] (1.000-1.035) Urine Protein (Negative) Urine Glucose (UA) (Negative) g/dL Urine Ketones (NEGATIVE) Urine Occult Blood (Negative) Urine Nitrate (Negative) Urine Bilirubin (NEGATIVE) Ur Bilirubin Confirm (Negative) Urine Urobilinogen (0.2) E.U./dL Ur Leukocyte Esterase (NEGATIVE) Urine RBC (0-5/HPF) Urine WBC (0-5/HPF) Ur Renal Epithelial Cell (0-1/HPF) Amorphous Sediment Urine Bacteria (None) Granular Casts (None) Ur Culture Indicated? 05/06/21 Range/Units 14:53 WBC (4.5-11.0) X10^3/uL RBC (4.0-5.2) X10^6/uL Hgb (12.0-16.0) g/dL Hct (36-46) % MCV (80-100) fL MCH (26-34) PG MCHC (30-36) % RDW (11.6-14.8) % Plt Count (150-400) X10^3/uL Neut % (Auto) (50-75) % Lymph % (Auto) (25-40) % [place] % (Auto) (3-14) % Eos % (Auto) (2-4) % Baso % (Auto) (0-2) % Neut # (Auto) (3522-1100) /uL Lymph # (Auto) (5143-1638) /uL [place] # (Auto) (0-900) /uL Eos # (Auto) (0-450) /uL Baso # (Auto) (0-100) /uL D-Dimer (<230) ng/mL Sodium (137-145) mmol/L Potassium (3.4-5.1) mmol/L Chloride (98-107) mmol/L Carbon Dioxide (22-32) mmol/L BUN (7-17) mg/dL Creatinine (0.52-1.04) mg/dL Estimated GFR (>60) mL/min BUN/Creatinine Ratio (6-22) Glucose (80-110) mg/dL Lactate (0.7-2.1) mmol/L Calcium (8.4-10.2) mg/dL Ferritin 136 (11-264) ng/mL Total Bilirubin (0.2-1.3) mg/dL AST (14-36) IU/L ALT (<35) IU/L Alkaline Phosphatase (38-126) U/L Lactate Dehydrogenase 765 H (313-618) U/L Total Creatine Kinase 380 H (30-135) U/L CK-MB (CK-2) 3.04 H (<2.37) ng/mL CK-MB (CK-2) Rel Index 0.8 L (1.5-5.0) % Troponin I 0.019 (0.01-0.034) ng/mL C-Reactive Protein 16.4 H (<1.0) mg/dL NT-Pro-B Natriuret Pep 1360 H (<450) pg/mL Total Protein (6.3-8.2) g/dL Albumin (3.5-5.0) g/dL Globulin (1.7-4.1) g/dL Albumin/Globulin Ratio (1.0-2.8) Procalcitonin (<0.5) ng/mL Urine Color Urine Appearance Urine pH (4.5-8.0) Ur Specific [place] (1.000-1.035) Urine Protein (Negative) Urine Glucose (UA) (Negative) g/dL Urine Ketones (NEGATIVE) Urine Occult Blood (Negative) Urine Nitrate (Negative) Urine Bilirubin (NEGATIVE) Ur Bilirubin Confirm (Negative) Urine Urobilinogen (0.2) E.U./dL Ur Leukocyte Esterase (NEGATIVE) Urine RBC (0-5/HPF) Urine WBC (0-5/HPF) Ur Renal Epithelial Cell (0-1/HPF) Amorphous Sediment Urine Bacteria (None) Granular Casts (None) Ur Culture Indicated? Imaging Data Chest x-ray: Radiologist's Impression: [address] [id number] ReportSigned Patient: Cherri Cannon R#: [id number]: 5Acct:[id number]/Sex: 75 / FDate of Service: 05/06/21Loc: [id number] Number: [id number] Procedure: XR chest 1V Ordering Provider: Rowdy Kathleen D.O. PROCEDURE: XR CHEST 1V INDICATIONS: Flu like symptoms TECHNIQUE: One view of the chest was acquired. COMPARISON: [facility], CT, CT CHEST WO CON, 03/30/2021, 11:54. FINDINGS: Surgical changes and devices: None. Lungs and pleura: Bilateral peripheral ground-glass infiltrates. No pleural effusions or pneumothorax. Mediastinum: Mediastinal contours appear normal. Heart size is normal. Bones and chest wall: No suspicious bony lesions. Overlying soft tissues appear unremarkable. IMPRESSION: Bilateral peripheral ground-glass infiltrates suspicious for atypical pneumonia. Dictated by: Paco Austin M.D. on 05/06/2021 at 15:34 Approved by: Paco Austin M.D. on 05/06/2021 at 15:35 ECG Data Attestation: I personally reviewed and interpreted this ECG as follows: Interpretation: Sinus rhythm Ventricular rate 90 to Normal axis Normal QRS Normal QTC No ST T wave changes MDM Narrative Medical decision making narrative: Patient had a positive COVID test and an outside facility 6 days ago. Upon arrival today patient was tachypneic, coughing, oxygen saturations in the low 90s. This did improve out oxygen by nasal cannula. Chest x-ray shows bilateral patchy infiltrates consistent with COVID pneumonia. Patient has a chronic skin condition that appears to have worsened over the past couple days. An area under the left breast was cultured. Will hold on any antibiotics for now. Discussed the case with Dr. Ng who will admit for further evaluation and treatment. Did discuss the need for admission for respiratory support to the patient she expressed understanding and agreement as well. Discharge Plan Departure Patient Disposition: Admitted As Inpatient Clinical Impression: Pneumonia due to 2019-nCoV, Hypoxia, Skin rash Admit Date/Time: 05/06/21 15:41 Admit Provider: Jean Claude Ng
[2021-05-06 15:15] LABS: Lactate (Lactic Acid) 2.1 mmol/L (0.7-2.1)
[2021-05-06 15:16] LABS: Alanine Aminotransferase 23 IU/L (<35); Albumin 3.7 g/dL (3.5-5.0); Albumin Globulin Ratio 1.1 (1.0-2.8); Alkaline Phosphatase 68 U/L (38-126); Aspartate Aminotransferase 56 IU/L (14-36); BUN Creatinine Ratio 28.3 (6-22); Blood Urea Nitrogen 30 mg/dL (7-17); Calcium 8.3 mg/dL (8.4-10.2); Carbon Dioxide 28 mmol/L (22-32); Chloride 96 mmol/L (98-107); Estimated Glomerular Filt Rate 50.4 mL/min (>60); Globulin 3.4 g/dL (1.7-4.1); Glucose 123 mg/dL (80-110); HEMOLYSIS < 15 (0-50); Potassium 4.1 mmol/L (3.4-5.1); Sodium 133 mmol/L (137-145); Total Protein 7.1 g/dL (6.3-8.2)
[2021-05-06 15:28] LABS: D Dimer 929 ng/mL (<230)
[2021-05-06 15:30] LABS: Creatine Kinase 380 U/L (30-135); Lactate Dehydrogenase 765 U/L (313-618)
[2021-05-06] MEDS: SODIUM CHLORIDE 0.9% 1,000 ML 125 ML IV (15:34)
[2021-05-06 15:39] LABS: NT-proBNP (BNP-Adult 18+) 1360 pg/mL (<450); Troponin I 0.019 ng/mL (0.01-0.034)
[2021-05-06 15:41] LABS: C-Reactive Protein Quant 16.4 mg/dL (<1.0)
[2021-05-06 15:42] LABS: CKMB % Relative Index 0.8 % (1.5-5.0); Creatine Kinase MB 3.04 ng/mL (<2.37)
[2021-05-06 15:45] LABS: Procalcitonin 0.28 ng/mL (<0.5)
[2021-05-06 16:02] LABS: Ferritin 136 ng/mL (11-264)
[2021-05-06] MEDS: DEXAMETHASONE 10 MG/ML VIAL IV (16:03)
[2021-05-06] MEDS: REMDESIVIR 200 MG in SODIUM CHLORIDE 0.9% 210 ML 250 ML IV (16:32)
--- NOTE | 2021-05-06 16:38 | PC.NURSE ---
Dr. Robbins (hospitalist) aware of low urine output. Will address up stairs.
--- NOTE | 2021-05-06 16:56 | PC.NURSE ---
Per pt request called Blank Zuñiga [phone] who is neighbor and friend to update on admission.
[2021-05-06 17:00] LABS: Reflexed Lactate in 2 Hours Y
[2021-05-06 17:23] LABS: Bacteria Urine None Seen; RBC Urine None Seen (0-5/HPF); WBC Urine None Seen (0-5/HPF)
[2021-05-06 17:38] LABS: Appearance Urine UA CLEAR; Bilirubin Urine UA 2+ (NEGATIVE); Color Urine UA YELLOW; Glucose Urine UA NEGATIVE (Negative); Ketones Urine UA TRACE (NEGATIVE); Leukocyte Esterase Urine UA NEGATIVE (NEGATIVE); Nitrite Urine UA NEGATIVE (Negative); Occult Blood Urine UA TRACE-LYSED (Negative); Protein Urine UA 2+ (Negative); Specific Gravity Urine UA 1.025 (1.000-1.035); Urobilinogen Urine UA 0.2 E.U./dL (0.2)
[2021-05-06 17:48] LABS: Ictotest Urine Negative (Negative)
[2021-05-06 17:50] LABS: Amorphous Sediment Urine 2+; Culture Indicated Urine Cult Not Indicated; Granular Casts Urine 1-5/LPF; Renal Epithelial Cells Urine 1-5/HPF (0-1/HPF)
--- NOTE | 2021-05-06 18:08 | PM.HP.1 ---
History of Present Illness History of Present Illness Date Patient Seen: 05/06/21 Time Patient Seen: 15:00 Chief complaint: Covid +/pneumonia x4days Narrative: Ms. 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 Apparently 1.5 weeks ago she started feeling symptoms of cough, dry heaving, cough. She was unfortunately not vaccinated per patient because she's a redhead and she was told by her daughter that the immune response is different for redheads. She went to outpatient clinic and was tested positive for COVID on 05/02. She has since developed worsening shortness of breath which led her to present to the ED. In the ED workup was done, vitals noted mild tachycardia in the 90s, respiratory rate in the 20s, pulse ox dropped to the 91% when I took her off oxygen. Labs showed WBC 10.5, creatinine 1.06, lactate 2.1, d-dimer 929, ldh 765, crp 16.4, bnp 1360. UA unremarkable for infection. Chest xray shows bilatera peripheral infiltrates. She was given remdesivir and dexamethasone and admitted for further treatment. Patient History Medical History Carpal tunnel syndrome of right wrist Cataract, left eye (~06/2016) Cellulitis Colon polyps (04/2010) Coronary artery disease Darier's disease Hypertension Osteoarthritis (~12/2017) Osteopenia (~2016) Renal insufficiency, mild (~02/2016) Surgical History Hx of cataract surgery (06/2016) Hx of section Hx of colonoscopy with polypectomy (04/2010) Hx of vitrectomy Family & Social History Family History Father Cancer Mother Cancer Brother Cancer Social History: household members none Tobacco & Substance use: Smoking Status Never smoker alcohol intake never Meds Home Medications and Allergies Home Medications Medication Instructions Recorded Confirmed Type [PROBIOTIC] 1 tab PO QDAY #0 07/19/16 05/02/21 History varicella-zoster glycoE [id number] 50 mcg IM ONCE #1 each 05/08/19 05/02/21 Rx adj(PF) 50 mcg/0.5 mL IM susp, kit (Shingrix (PF)) telmisartan 40 mg tablet See Rx Instructions .ROUTE 09/17/19 05/02/21 Rx .COMPLEX #90 tablet furosemide 20 mg tablet 20 mg PO DAILY PRN #30 tab 10/29/19 05/02/21 Rx betamethasone dipropionate 0.05 % 1 applictn TOP TID PRN #45 gram 01/14/20 05/02/21 Rx topical ointment aspirin 81 mg chewable tablet 81 mg PO DAILY 03/21/20 05/02/21 History atorvastatin 40 mg tablet 40 mg PO tab 03/21/20 05/02/21 History carvedilol 3.125 mg tablet 3.125 mg PO BID #180 tab 04/07/20 05/02/21 Rx mupirocin 2 % topical ointment See Rx Instructions .ROUTE 05/19/20 05/02/21 Rx .COMPLEX #30 gram clobetasol 0.05 % scalp solution See Rx Instructions .ROUTE 05/21/20 05/02/21 Rx .COMPLEX #50 milliliter C,E,zinc,copper [id number] PO 09/24/20 05/02/21 History [Ocuvite Adult 50 Plus] cholecalciferol (vitamin D3) PO 09/24/20 05/02/21 History cyanocobalamin (vitamin B-12) PO 09/24/20 05/02/21 History turmeric PO 09/24/20 05/02/21 History vitamin E acetate PO 09/24/20 05/02/21 History azelastine 137 mcg (0.1 %) nasal 1 spray INTRANASAL BID #30 ml 05/02/21 05/02/21 Rx spray aerosol fluocinolone 0.01 % scalp oil and 1 ea TOP .PRN #118.28 ml 05/02/21 05/02/21 Rx shower cap ketoconazole 2 % shampoo 1 applic TOP .Q3DAYS PRN #120 ml 05/02/21 05/02/21 Rx olopatadine 0.2 % eye drops 1 drp EYE-BOTH DAILY PRN #2.5 ml 05/02/21 05/02/21 Rx (Pataday Once Daily Relief) Allergies Allergy/AdvReac Type Severity Reaction Status Date / Time cetirizine Allergy Severe CHEST PAIN Verified 05/06/21 15:43 ELEPHANT SAT ON MY CHEST FOR 2 DAYS adhesive tape Allergy Intermediate Redness of Verified 05/06/21 15:43 Skin amlodipine [AMLODIPINE] Allergy Intermediate Pain in Verified 05/06/21 15:43 fingers/hands dog dander Allergy Intermediate Rash Verified 05/06/21 15:43 procaine Allergy Mild RASH AND Verified 05/06/21 15:43 BLISTERS Anesthetics - Amide Type - Allergy Unknown Verified 05/06/21 15:43 Select A Anesthetics - Valentine Type- Allergy Unknown Verified 05/06/21 15:43 Parabens hydrochlorothiazide AdvReac Severe Renal Verified 05/06/21 15:43 [HYDROCHLOROTHIAZIDE] insufficiency - severe prednisone [PREDNISONE] AdvReac Intermediate Elevated Verified 05/06/21 15:43 blood pressure adhesive [ADHESIVE] AdvReac Mild Bandaids - Verified 05/06/21 15:43 causes redness of skin Review of Systems Review of Systems Narrative: 14 systems reviewed and negative aside from what is noted in HPI Exam Vital Signs (past 8 hours): - 05/06/21 14:24 05/06/21 15:15 05/06/21 15:30 Temperature 97.7 F Pulse Rate 94 H 92 H 88 Respiratory Rate 22 33 H 25 H Blood Pressure 124/70 131/70 Pulse Oximetry 92 97 97 05/06/21 15:45 05/06/21 16:00 05/06/21 16:01 Temperature Pulse Rate 88 87 91 H Respiratory Rate 24 25 H 27 H Blood Pressure 138/59 L Pulse Oximetry 97 96 97 05/06/21 16:15 05/06/21 16:30 05/06/21 17:20 Temperature 99.8 F H Pulse Rate 80 86 82 Respiratory Rate 31 H 22 20 Blood Pressure 140/66 181/77 H Pulse Oximetry 94 92 92 Oxygen Delivery Method Nasal Cannula Oxygen Flow Rate 0 Narrative Exam Narrative: GEN: mild respiratory distress HEENT: moist mucous membranes, PERRL NECK: trachea midline, no JVD CV: regular rate and rhythm with no murmurs PULM: coarse breath sounds bilaterally ABD: soft, nontender, nondistended, no organomegaly, normal bowel sounds EXT: warm and well perfused with no edema NEURO: awake, alert and oriented, moving all extremities with no noted deficits PSYCH: pleasant, cooperative SKIN: plaquest scattered on her skin including, extremities and face Objective Labs Result Diagrams: 05/06/21 14:53 05/06/21 14:53 Labs: Laboratory Results - last 24 hr 05/06/21 05/06/21 05/06/21 14:12 14:53 14:53 WBC 10.5 RBC 4.81 Hgb 13.2 Hct 40.1 MCV 83.3 MCH 27.4 MCHC 32.9 RDW 14.6 Plt Count 211 Neut % (Auto) 81.3 H Lymph % (Auto) 11.7 L [place] % (Auto) 6.4 Eos % (Auto) 0.4 L Baso % (Auto) 0.2 Neut # (Auto) 8500 H Lymph # (Auto) 1200 [place] # (Auto) 700 Eos # (Auto) 0 Baso # (Auto) 0 D-Dimer Sodium 133 L Potassium 4.1 Chloride 96 L Carbon Dioxide 28 BUN 30 H Creatinine 1.06 H Estimated GFR 50.4 L BUN/Creatinine Ratio 28.3 H Glucose 123 H Lactate Calcium 8.3 L Ferritin Total Bilirubin 1.0 AST 56 H ALT 23 Alkaline Phosphatase 68 Lactate Dehydrogenase Total Creatine Kinase CK-MB (CK-2) CK-MB (CK-2) Rel Index Troponin I C-Reactive Protein NT-Pro-B Natriuret Pep Total Protein 7.1 Albumin 3.7 Globulin 3.4 Albumin/Globulin Ratio 1.1 Procalcitonin Urine Color Yellow Urine Appearance Clear Urine pH 5.0 Ur Specific [place] 1.025 Urine Protein 2+ H Urine Glucose (UA) Negative Urine Ketones Trace H Urine Occult Blood Trace-lysed Urine Nitrate Negative Urine Bilirubin 2+ H Ur Bilirubin Confirm Negative Urine Urobilinogen 0.2 Ur Leukocyte Esterase Negative Urine RBC None seen Urine WBC None seen Ur Renal Epithelial Cell 1-5/hpf H Amorphous Sediment 2+ Urine Bacteria None seen Granular Casts 1-5/lpf Ur Culture Indicated? Cult not indicated 05/06/21 05/06/21 05/06/21 14:53 14:53 14:53 WBC RBC Hgb Hct MCV MCH MCHC RDW Plt Count Neut % (Auto) Lymph % (Auto) [place] % (Auto) Eos % (Auto) Baso % (Auto) Neut # (Auto) Lymph # (Auto) [place] # (Auto) Eos # (Auto) Baso # (Auto) D-Dimer 929 H Sodium Potassium Chloride Carbon Dioxide BUN Creatinine Estimated GFR BUN/Creatinine Ratio Glucose Lactate 2.1 Calcium Ferritin Total Bilirubin AST ALT Alkaline Phosphatase Lactate Dehydrogenase Total Creatine Kinase CK-MB (CK-2) CK-MB (CK-2) Rel Index Troponin I C-Reactive Protein NT-Pro-B Natriuret Pep Total Protein Albumin Globulin Albumin/Globulin Ratio Procalcitonin 0.28 Urine Color Urine Appearance Urine pH Ur Specific [place] Urine Protein Urine Glucose (UA) Urine Ketones Urine Occult Blood Urine Nitrate Urine Bilirubin Ur Bilirubin Confirm Urine Urobilinogen Ur Leukocyte Esterase Urine RBC Urine WBC Ur Renal Epithelial Cell Amorphous Sediment Urine Bacteria Granular Casts Ur Culture Indicated? 05/06/21 14:53 WBC RBC Hgb Hct MCV MCH MCHC RDW Plt Count Neut % (Auto) Lymph % (Auto) [place] % (Auto) Eos % (Auto) Baso % (Auto) Neut # (Auto) Lymph # (Auto) [place] # (Auto) Eos # (Auto) Baso # (Auto) D-Dimer Sodium Potassium Chloride Carbon Dioxide BUN Creatinine Estimated GFR BUN/Creatinine Ratio Glucose Lactate Calcium Ferritin 136 Total Bilirubin AST ALT Alkaline Phosphatase Lactate Dehydrogenase 765 H Total Creatine Kinase 380 H CK-MB (CK-2) 3.04 H CK-MB (CK-2) Rel Index 0.8 L Troponin I 0.019 C-Reactive Protein 16.4 H NT-Pro-B Natriuret Pep 1360 H Total Protein Albumin Globulin Albumin/Globulin Ratio Procalcitonin Urine Color Urine Appearance Urine pH Ur Specific [place] Urine Protein Urine Glucose (UA) Urine Ketones Urine Occult Blood Urine Nitrate Urine Bilirubin Ur Bilirubin Confirm Urine Urobilinogen Ur Leukocyte Esterase Urine RBC Urine WBC Ur Renal Epithelial Cell Amorphous Sediment Urine Bacteria Granular Casts Ur Culture Indicated? Assessment & Plan Assessment & Plan narrative: Ms. Cannon is a 75W who presents with shortness of breath and cough found to have hypoxemia from COVID pneumonia. 1. Acute respiratory failure with hypoxemia from COVID pneumonia - desaturated to 91% on room air at rest - xray consistent with pneumonia, patient covid positive -started on IV remdesivir and dexamethasone -encourage proning -dvt prophylaxis ordered with SCDs and lovenox -for now trend inflammatory markers daily 2. CAD -continue aspirin and statin -patient asymptomatic currently 3. HOME -baseline creatinine 0.76, now up to 1.06 -secondary to covid infection -did get IV fluids in ED, will stop for now -avoid nephrotoxins -check creatinine daily 4. Skin rash -chronic -per patient a vesiculobullous disease, but darier's disease listed in chart -continue home topical medications CODE: DNR Proxy: Urmila Jernigan, Daughter I have utilized all available immediate resources to obtain, update, or review the patient's current medications. Quality MIPS - Admit I confirm the patient?s Advance Care Plan is present, Code status is documented, Surrogate decision maker is in patient?s record [If Yes, STOP here]: Yes
[2021-05-06] MEDS: ATORVASTATIN 20 MG TABLET 40 MG PO (21:42)
[2021-05-06] MEDS: ENOXAPARIN 40 MG/0.4 ML SYRINGE SUBCUT (21:42)
[2021-05-07] VITALS (22 sets, daily range): BP systolic 115–153; BP diastolic 60–73; PULSE 63–83; RESP 15–27; TEMP 36.6–36.8; O2SAT 90–94
[2021-05-07 04:43] LABS: Add Manual Diff / Slide Review NO; Basophils Absolute Auto 0 /uL (0-100); Basophils Percent Auto 0.2 % (0-2); Eosinophils Absolute Auto 0 /uL (0-450); Hematocrit 39.1 % (36-46); Hemoglobin 12.8 g/dL (12.0-16.0); Lymphocytes Absolute Auto 900 /uL (1100-4500); Mean Corpuscular HGB Conc 32.8 % (30-36); Mean Corpuscular Hemoglobin 27.4 PG (26-34); Mean Corpuscular Volume 83.6 fL (80-100); Monocytes Absolute Auto 300 /uL (0-900); Monocytes Percent Auto 3.6 % (3-14); Neutrophils Absolute Auto 6700 /uL (1500-7000); Neutrophils Percent Auto 85.2 % (50-75); Platelet Count 198 X10^3/uL (150-400); Red Blood Cell Count 4.68 X10^6/uL (4.0-5.2); Red Cell Distribution Width 14.9 % (11.6-14.8); White Blood Cell Count 7.8 X10^3/uL (4.5-11.0)
[2021-05-07 04:46] LABS: D Dimer 733 ng/mL (<230)
[2021-05-07 04:51] LABS: Alanine Aminotransferase 23 IU/L (<35); Albumin 3.2 g/dL (3.5-5.0); Alkaline Phosphatase 59 U/L (38-126); Aspartate Aminotransferase 54 IU/L (14-36); BUN Creatinine Ratio 33.7 (6-22); Bilirubin Total 0.7 mg/dL (0.2-1.3); Blood Urea Nitrogen 29 mg/dL (7-17); Calcium 8.1 mg/dL (8.4-10.2); Carbon Dioxide 29 mmol/L (22-32); Chloride 99 mmol/L (98-107); Estimated Glomerular Filt Rate > 60.0 mL/min (>60); Globulin 3.3 g/dL (1.7-4.1); Glucose 140 mg/dL (80-110); HEMOLYSIS < 15 (0-50); Potassium 4.1 mmol/L (3.4-5.1); Sodium 134 mmol/L (137-145); Total Protein 6.5 g/dL (6.3-8.2)
[2021-05-07 04:57] LABS: NT-proBNP (BNP-Adult 18+) 1390 pg/mL (<450)
[2021-05-07 05:23] LABS: Ferritin 125 ng/mL (11-264)
[2021-05-07] MEDS: ASPIRIN 81 MG CHEW TAB PO (09:10)
[2021-05-07] MEDS: ENOXAPARIN 40 MG/0.4 ML SYRINGE SUBCUT ×2 (09:10→21:34)
[2021-05-07] MEDS: DEXAMETHASONE 10 MG/ML VIAL 6 MG IV (09:10)
[2021-05-07] MEDS: REMDESIVIR 100 MG in SODIUM CHLORIDE 0.9% 230 ML 250 ML IV (09:10)
--- NOTE | 2021-05-07 09:23 | CM.DANOTE ---
DCP: Case received, EMR reviewed. Called patient in her room. Introduced self and role over the phone. Was able to obtain information from patient regarding her baseline activity status prior to hospitalization, as well as her current living situation. DCP assessment completed with information currently available. Patient is a 75 year old female who admitted yesterday afternoon to the care of the hospitalist team. PCP: Dr. Amezquita. Payer: confirmed: [facility] [place]. Patient came to the hospital via private vehicle secondary to having increased weakness and shortness of breath. Patient had been tested 6 days ago for COVID, and was positive. Her symptoms had apparently started about 12 days ago. Patient has not been vaccinated. Patient also has history of a skin disorder as well. She has pneumonia. Spoke to patient via phone in her room. Confirmed with patient that she resides here in [facility]. She has a daughter named Urmila Jernigan who resides in [place], and also indicated that she has another daughter in [place]. Patient stated that she is independent at her baseline. She also indicated that she uses a ramp to get into her house, to avoid stairs. She also indicated that she has balance issues, but does not use any DME supplies. She is here for oxygen support as well. P: DCP to continue to follow. Patient should be able to go home when she is deemed medically stable. Estefani Garcia RN/Coat Maker
--- NOTE | 2021-05-07 09:24 | DIET.PN ---
Dietary Progress Note RD Note: 75y F known to RD as pt recently completed Cardiac Rehab and had 1:1 OP nutrition visit secondary to morbid obesity BMI 50. Pt was working on portion control and increasing physical activity routine at home including doing senior exercise tapes 3x/w and stair stepper 50-80 steps. Sending ONS Ensure Max c lunches to support high protein needs in bariatric ONS formula.
--- NOTE | 2021-05-07 13:55 | PM.PN.1 ---
Subjective Subjective Date Patient Seen: 05/07/21 Time Patient Seen: 08:00 Interval history: Today she states she feels slightly better. She remains short of breath with low saturation on oxygen. Exam Vital Signs (past 8 hours): - 05/07/21 06:00 05/07/21 08:00 05/07/21 08:37 Temperature 98.0 F Pulse Rate 65 69 83 Respiratory Rate 15 20 20 Blood Pressure 139/65 Pulse Oximetry 91 92 92 05/07/21 09:56 05/07/21 12:00 05/07/21 12:43 Temperature 98.2 F Pulse Rate 73 73 Respiratory Rate 18 22 22 Blood Pressure 130/60 Pulse Oximetry 91 90 L 94 Oxygen Delivery Method Nasal Cannula Oxygen Flow Rate 3 Narrative Exam Narrative: GEN: mild respiratory distress HEENT: moist mucous membranes, PERRL NECK: trachea midline, no JVD CV: regular rate and rhythm with no murmurs PULM: coarse breath sounds bilaterally ABD: soft, nontender, nondistended, no organomegaly, normal bowel sounds EXT: warm and well perfused with no edema NEURO: awake, alert and oriented, moving all extremities with no noted deficits PSYCH: pleasant, cooperative SKIN: plaques scattered on her skin including, extremities and face Objective Labs Result Diagrams: 05/07/21 04:10 05/07/21 04:10 Labs: Laboratory Results - last 24 hr 05/06/21 05/06/21 05/06/21 14:12 14:53 14:53 WBC 10.5 RBC 4.81 Hgb 13.2 Hct 40.1 MCV 83.3 MCH 27.4 MCHC 32.9 RDW 14.6 Plt Count 211 Neut % (Auto) 81.3 H Lymph % (Auto) 11.7 L [place] % (Auto) 6.4 Eos % (Auto) 0.4 L Baso % (Auto) 0.2 Neut # (Auto) 8500 H Lymph # (Auto) 1200 [place] # (Auto) 700 Eos # (Auto) 0 Baso # (Auto) 0 D-Dimer Sodium 133 L Potassium 4.1 Chloride 96 L Carbon Dioxide 28 BUN 30 H Creatinine 1.06 H Estimated GFR 50.4 L BUN/Creatinine Ratio 28.3 H Glucose 123 H Lactate Calcium 8.3 L Ferritin Total Bilirubin 1.0 AST 56 H ALT 23 Alkaline Phosphatase 68 Lactate Dehydrogenase Total Creatine Kinase CK-MB (CK-2) CK-MB (CK-2) Rel Index Troponin I C-Reactive Protein NT-Pro-B Natriuret Pep Total Protein 7.1 Albumin 3.7 Globulin 3.4 Albumin/Globulin Ratio 1.1 Procalcitonin Urine Color Yellow Urine Appearance Clear Urine pH 5.0 Ur Specific [place] 1.025 Urine Protein 2+ H Urine Glucose (UA) Negative Urine Ketones Trace H Urine Occult Blood Trace-lysed Urine Nitrate Negative Urine Bilirubin 2+ H Ur Bilirubin Confirm Negative Urine Urobilinogen 0.2 Ur Leukocyte Esterase Negative Urine RBC None seen Urine WBC None seen Ur Renal Epithelial Cell 1-5/hpf H Amorphous Sediment 2+ Urine Bacteria None seen Granular Casts 1-5/lpf Ur Culture Indicated? Cult not indicated Nasal Screen MRSA (PCR) 05/06/21 05/06/21 05/06/21 14:53 14:53 14:53 WBC RBC Hgb Hct MCV MCH MCHC RDW Plt Count Neut % (Auto) Lymph % (Auto) [place] % (Auto) Eos % (Auto) Baso % (Auto) Neut # (Auto) Lymph # (Auto) [place] # (Auto) Eos # (Auto) Baso # (Auto) D-Dimer 929 H Sodium Potassium Chloride Carbon Dioxide BUN Creatinine Estimated GFR BUN/Creatinine Ratio Glucose Lactate 2.1 Calcium Ferritin Total Bilirubin AST ALT Alkaline Phosphatase Lactate Dehydrogenase Total Creatine Kinase CK-MB (CK-2) CK-MB (CK-2) Rel Index Troponin I C-Reactive Protein NT-Pro-B Natriuret Pep Total Protein Albumin Globulin Albumin/Globulin Ratio Procalcitonin 0.28 Urine Color Urine Appearance Urine pH Ur Specific [place] Urine Protein Urine Glucose (UA) Urine Ketones Urine Occult Blood Urine Nitrate Urine Bilirubin Ur Bilirubin Confirm Urine Urobilinogen Ur Leukocyte Esterase Urine RBC Urine WBC Ur Renal Epithelial Cell Amorphous Sediment Urine Bacteria Granular Casts Ur Culture Indicated? Nasal Screen MRSA (PCR) 05/06/21 05/06/21 05/07/21 14:53 21:50 04:10 WBC RBC Hgb Hct MCV MCH MCHC RDW Plt Count Neut % (Auto) Lymph % (Auto) [place] % (Auto) Eos % (Auto) Baso % (Auto) Neut # (Auto) Lymph # (Auto) [place] # (Auto) Eos # (Auto) Baso # (Auto) D-Dimer 733 H Sodium Potassium Chloride Carbon Dioxide BUN Creatinine Estimated GFR BUN/Creatinine Ratio Glucose Lactate Calcium Ferritin 136 Total Bilirubin AST ALT Alkaline Phosphatase Lactate Dehydrogenase 765 H Total Creatine Kinase 380 H CK-MB (CK-2) 3.04 H CK-MB (CK-2) Rel Index 0.8 L Troponin I 0.019 C-Reactive Protein 16.4 H NT-Pro-B Natriuret Pep 1360 H Total Protein Albumin Globulin Albumin/Globulin Ratio Procalcitonin Urine Color Urine Appearance Urine pH Ur Specific [place] Urine Protein Urine Glucose (UA) Urine Ketones Urine Occult Blood Urine Nitrate Urine Bilirubin Ur Bilirubin Confirm Urine Urobilinogen Ur Leukocyte Esterase Urine RBC Urine WBC Ur Renal Epithelial Cell Amorphous Sediment Urine Bacteria Granular Casts Ur Culture Indicated? Nasal Screen MRSA (PCR) Negative for mrsa 05/07/21 05/07/21 04:10 04:10 WBC 7.8 RBC 4.68 Hgb 12.8 Hct 39.1 MCV 83.6 MCH 27.4 MCHC 32.8 RDW 14.9 H Plt Count 198 Neut % (Auto) 85.2 H Lymph % (Auto) 11.0 L [place] % (Auto) 3.6 Eos % (Auto) 0.0 L Baso % (Auto) 0.2 Neut # (Auto) 6700 Lymph # (Auto) 900 L [place] # (Auto) 300 Eos # (Auto) 0 Baso # (Auto) 0 D-Dimer Sodium 134 L Potassium 4.1 Chloride 99 Carbon Dioxide 29 BUN 29 H Creatinine 0.86 Estimated GFR > 60.0 BUN/Creatinine Ratio 33.7 H Glucose 140 H Lactate Calcium 8.1 L Ferritin 125 Total Bilirubin 0.7 AST 54 H ALT 23 Alkaline Phosphatase 59 Lactate Dehydrogenase Total Creatine Kinase CK-MB (CK-2) CK-MB (CK-2) Rel Index Troponin I C-Reactive Protein 15.0 H NT-Pro-B Natriuret Pep 1390 H Total Protein 6.5 Albumin 3.2 L Globulin 3.3 Albumin/Globulin Ratio 1.0 Procalcitonin Urine Color Urine Appearance Urine pH Ur Specific [place] Urine Protein Urine Glucose (UA) Urine Ketones Urine Occult Blood Urine Nitrate Urine Bilirubin Ur Bilirubin Confirm Urine Urobilinogen Ur Leukocyte Esterase Urine RBC Urine WBC Ur Renal Epithelial Cell Amorphous Sediment Urine Bacteria Granular Casts Ur Culture Indicated? Nasal Screen MRSA (PCR) PFSH Medical History Carpal tunnel syndrome of right wrist Cataract, left eye (~06/2016) Cellulitis Colon polyps (04/2010) Coronary artery disease Darier's disease Hypertension Osteoarthritis (~12/2017) Osteopenia (~2016) Renal insufficiency, mild (~02/2016) Surgical History Hx of cataract surgery (06/2016) Hx of section Hx of colonoscopy with polypectomy (04/2010) Hx of vitrectomy Family History Father Cancer Mother Cancer Brother Cancer Social History household members: none Smoking Status: Never smoker second hand exposure: Yes alcohol intake: never substance use type: does not use Assessment & Plan Assessment & Plan narrative: Ms. Cannon is a 75W who presents with shortness of breath and cough found to have hypoxemia from COVID pneumonia. 1. Acute respiratory failure with hypoxemia from COVID pneumonia - desaturated to 91% on room air at rest, overnight was 90% on 3-4L of oxygen - xray consistent with pneumonia, patient covid positive -started on IV remdesivir and dexamethasone -encourage proning -dvt prophylaxis ordered with SCDs and lovenox -for now trend inflammatory markers daily 2. CAD -continue aspirin and statin -patient asymptomatic currently 3. HOME, resolved -baseline creatinine 0.76, up to 1.06 no admission, now improving -secondary to covid infection -did get IV fluids in ED, will stop for now -avoid nephrotoxins -check creatinine daily 4. Skin rash -chronic -per patient a vesiculobullous disease, but darier's disease listed in chart -continue home topical medications CODE: DNR Proxy: Urmila Jernigan, Daughter
[2021-05-07] MEDS: MUPIROCIN 22 GM OINT 1 APPLIC TOP ×3 (14:28→21:25)
[2021-05-07] MEDS: ATORVASTATIN 20 MG TABLET 40 MG PO (21:27)
[2021-05-08] VITALS (14 sets, daily range): BP systolic 135–167; BP diastolic 67–84; PULSE 62–73; RESP 18–20; TEMP 36.4–37.2; O2SAT 92–97
[2021-05-08 04:45] LABS: BUN Creatinine Ratio 46.3 (6-22); Blood Urea Nitrogen 37 mg/dL (7-17); Calcium 7.9 mg/dL (8.4-10.2); Carbon Dioxide 31 mmol/L (22-32); Chloride 99 mmol/L (98-107); Estimated Glomerular Filt Rate > 60.0 mL/min (>60); Glucose 159 mg/dL (80-110); HEMOLYSIS < 15 (0-50); Potassium 4.8 mmol/L (3.4-5.1); Sodium 133 mmol/L (137-145)
[2021-05-08 04:47] LABS: Hematocrit 37.1 % (36-46); Hemoglobin 12.4 g/dL (12.0-16.0); Mean Corpuscular HGB Conc 33.3 % (30-36); Mean Corpuscular Hemoglobin 27.7 PG (26-34); Platelet Count 216 X10^3/uL (150-400); Red Blood Cell Count 4.47 X10^6/uL (4.0-5.2); Red Cell Distribution Width 14.5 % (11.6-14.8); White Blood Cell Count 14.7 X10^3/uL (4.5-11.0)
[2021-05-08] MEDS: diphenhydrAMINE 25 MG TABLET PO (06:09)
[2021-05-08] MEDS: ASPIRIN EC 81 MG TABLET PO (08:48)
[2021-05-08] MEDS: ENOXAPARIN 40 MG/0.4 ML SYRINGE SUBCUT ×2 (08:48→20:21)
[2021-05-08] MEDS: DEXAMETHASONE 10 MG/ML VIAL 6 MG IV (08:48)
[2021-05-08] MEDS: SODIUM CHLORIDE 0.9% FLUSH 10 ML IV ×2 (08:49→20:21)
--- NOTE | 2021-05-08 09:55 | PT.IIE ---
Current Diagnoses COVID-19 (05/06/21) Medical History (Last Reviewed 05/06/21 @ 18:30 by Rowdy Kathleen DO) Carpal tunnel syndrome of right wrist Cataract, left eye (~06/2016) Cellulitis Colon polyps (04/2010) Coronary artery disease Darier's disease Hypertension Osteoarthritis (~12/2017) Osteopenia (~2016) Renal insufficiency, mild (~02/2016) Physical Therapy Inpatient Evaluation/Re-Eval M1 PT/OT-IP Prior Functional Status Start: 05/08/21 11:40 Freq: NEEDED Status: Active Protocol: Document 05/08/21 09:55 AB (Rec: 05/08/21 11:56 AB [email or web address]) Medical Review Prior Functional Status Medical History Reviewed Yes Communication able to make needs known Mobility and Gait pt stated that she is independent with all mobilities and ambulation without AD Social History Household Members none Living Arrangements House Number of Floors (Floors) One Floor Number of Stairs To Enter/Railing? ramp to enter Home Environment High Toilet,Walk in Shower, Built-In Shower Seat Home Equipment Hand Held Shower,Grab Bars In Shower Additional Social History Comment pt has an adjustable bed M2 PT-IP Current Condition Start: 05/08/21 11:40 Freq: NEEDED Status: Active Protocol: Document 05/08/21 09:55 AB (Rec: 05/08/21 11:56 AB [email or web address]) Physical Therapy Current Condition Current Condition Evaluation Date 05/08/21 Treatment Diagnosis Covid PNA; difficulty in walking Onset Date 05/06/21 Precautions Other Precautions Covid precautions M3 PT-IP Subjective Start: 05/08/21 11:40 Freq: NEEDED Status: Active Protocol: Document 05/08/21 09:55 AB (Rec: 05/08/21 11:56 AB [email or web address]) Subjective Physical Therapy Visit Type Type Initial Evaluation Visit Start Time 09:55 Visit Stop Time 10:40 Total Visit Minutes 45 Number of FLIGHT RADIO OPERATOR Visits 0 Physical Therapy Visit Comments Patient Comments agreeable to do PT Therapy Pain Assessment Pain When Pain Assessed At Rest Location Back Scale Used pain scale not stated Pain Management Techniques Re-positioning M4 PT-IP Mobility and Gait Start: 05/08/21 11:40 Freq: NEEDED Status: Active Protocol: Document 05/08/21 09:55 AB (Rec: 05/08/21 11:56 AB [id number]) PT-Bed Mobility Assessment Supine to Sit Supine to Sit Standby Assistance Sit to Supine Sit to Supine Standby Assistance PT-Transfer Assessment Sit to and From Stand Sit to and from Stand Standby Assistance,Contact Guard Assistance,1 Person Assistance,Use of Upper Extremities Equipment Transfer Assistive Device Gait Belt,Front Wheeled Walker Orthotic/Prosthetic Devices or Brace: No Transfers Transfer Destination Toilet Transfer Technique ambulated Transfer Ability Level of Assist Contact Guard Assistance,1 Person Assistance Comments Mobility Comments pt sitting on chair and agreeable to do PT. O2 sat with 3 1/2 L : 94-96%. completed sit to stand from chair SBA to CGA and stated that she needs to use the toilet urgently. ambulated to the toilet CGA initially using FWW but pt left the FWW out once she reached the toilet door and ambulated holding on the the wall/grab bar CGA. pt was able to stand CGA while assisted with hygiene care and brief management. pt ambulated out of the toilet to the sink holding on to counter/wall CGA and completed handwashing SBA . ambulated back to chair using FWW SBA to CGA. O2 sat checked 89% but increased to 93% in just a few seconds. pt rested and agreed to ambulate again and completed ~ 35 ft using FWW SBA to CGA using FWW . pt sat on EOB. O2 sat checked: 94% but increased to 93% in ~ 5 sec. completed sit <>supine SBA. agreed to sit on chair and completed transfer SBA using FWW. positioned on chair. call light and table placed within reach. Noted: pt has bouts of coughing during tx session requiring rest breaks. informed nurse regarding pt's mobility. Gait Assessment Gait Gait Assistance Required: Standby Assistance,Contact Guard Assist Distance (Feet) 35 Able to Maintain Weight Bearing Status Yes During Gait Assistive Devices Assistive Device Gait Belt,Front Wheeled Walker Orthotic/Prosthetic Devices or Brace: No Gait Deviations General Gait Pattern Antalgic,Decreased Stride Length,Decreased Feet Clearance,Step-to Gait Factors Limiting Gait Function Factors Limiting Gait Function Decreased Activity Tolerance, Decreased Strength,Pain,Poor Balance,Respiratory Distress Comments Gait Comments pls refer to mobility section for details PT-Balance Assessment Sitting Balance and Reactions Static Sitting Balance Ability Good Dynamic Sitting Balance Ability Good Standing Balance and Reactions Static Standing Balance Ability Fair Dynamic Standing Balance Ability Fair Device Used FWW M5 PT-IP Objective Assessments Start: 05/08/21 11:40 Freq: NEEDED Status: Active Protocol: Document 05/08/21 09:55 AB (Rec: 05/08/21 11:56 AB [id number]) Orientation Orientation/Cognition Level of Alertness Alert Orientation Name,Place,Situation Safety Awareness Decreased Safety Awareness Strength Lower Extremity Strength Assessment Bilaterally Impaired Hip 3/5 Knee 3+/5 Muscle Tone Muscle Tone WNL Yes Other Assessments Other Other Assessments has rashes/sores throughout the body M6 PT-IP Treatment Start: 05/08/21 11:40 Freq: NEEDED Status: Active Protocol: Document 05/08/21 09:55 AB (Rec: 05/08/21 11:56 AB [id number]) Physical Therapy Treatment Education Education Provided Safety M7 PT-IP Assessment and Plan Start: 05/08/21 11:40 Freq: NEEDED Status: Active Protocol: Document 05/08/21 09:55 AB (Rec: 05/08/21 11:56 AB [email or web address]) PT Summary Assessment and Plan Potential Rehabilitation Potential Fair Status of Condition at Evaluation Evolving Summary Impairments Pain,ROM,Strength,Balance, Coordination,Sensation, Cognition,Bed Mobility, Transfers,Gait,Activity Tolerance Assessment Summary pt requiring SBA to CGA but has decrease activity tolerance affecting mobility independence. O2 sat decreased with activity but recovery is good with pt using 3 1/2 L of O2. pt lives alone and will not have any assitance at home. d/c plan depending on progress: SNF vs home with assist. pt will also require a FWW for ambulation at this time. Goals Bed Mobility Goal Independent Transfer Goal Independent,Front Wheeled Walker Gait Goal Independent,Front Wheel Walker Gait Distance 100 Other Goals improve ambulation without AD 150 ft SBA Days to Meet Goals 10 Frequency of Treatment Frequency Of Treatment Once a Day Treatment Plan Physical Therapy Treatment Plan Bed Mobility Training,Transfer Training,Gait Training, Therapeutic Exercise,Balance Retraining,Discharge Planning, Hot or Cold Pack,Neuromuscular Re-ed,Coordination Retraining Precautions Other Precautions Covid precautions Recommendations To Nursing Amount of Assist Needed 1 Person Assist Discharge Recommendations PT Discharge Recommendations Home with Assistance,Home Health,SNF Rehab,Home vs SNF Equipment Needed for Home Before FWW Discharge Transportation Needs at Discharge Private Vehicle,Wheelchair/ Cabulance
--- NOTE | 2021-05-08 10:40 | PM.PN.1 ---
Subjective Subjective Date Patient Seen: 05/08/21 Time Patient Seen: 08:00 Interval history: She feels a little better today, feels stronger. She still has shortness of breath, worse with activity. Exam Vital Signs (past 8 hours): - 05/08/21 03:00 05/08/21 04:00 05/08/21 05:00 Temperature Pulse Rate 68 62 65 Respiratory Rate Blood Pressure Pulse Oximetry 93 93 94 05/08/21 05:25 05/08/21 06:00 05/08/21 09:30 Temperature 98.9 F Pulse Rate 67 69 Respiratory Rate 18 Blood Pressure 152/72 H Pulse Oximetry 94 97 94 05/08/21 10:15 Temperature Pulse Rate 71 Respiratory Rate 18 Blood Pressure 139/84 Pulse Oximetry 95 Oxygen Delivery Method Nasal Cannula Oxygen Flow Rate 4 Narrative Exam Narrative: G: mild respiratory distress HEENT: moist mucous membranes, PERRL NECK: trachea midline, no JVD CV: regular rate and rhythm with no murmurs PULM: coarse breath sounds bilaterally ABD: soft, nontender, nondistended, no organomegaly, normal bowel sounds EXT: warm and well perfused with no edema NEURO: awake, alert and oriented, moving all extremities with no noted deficits PSYCH: pleasant, cooperative SKIN: plaques scattered on her skin including, extremities and face Objective Labs Result Diagrams: 05/08/21 04:10 05/08/21 04:10 Labs: Laboratory Results - last 24 hr 05/08/21 05/08/21 04:10 04:10 WBC 14.7 H D RBC 4.47 Hgb 12.4 Hct 37.1 MCV 83.0 MCH 27.7 MCHC 33.3 RDW 14.5 Plt Count 216 Sodium 133 L Potassium 4.8 Chloride 99 Carbon Dioxide 31 BUN 37 H Creatinine 0.80 Estimated GFR > 60.0 BUN/Creatinine Ratio 46.3 H Glucose 159 H Calcium 7.9 L PFSH Medical History Carpal tunnel syndrome of right wrist Cataract, left eye (~06/2016) Cellulitis Colon polyps (04/2010) Coronary artery disease Darier's disease Hypertension Osteoarthritis (~12/2017) Osteopenia (~2016) Renal insufficiency, mild (~02/2016) Surgical History Hx of cataract surgery (06/2016) Hx of section Hx of colonoscopy with polypectomy (04/2010) Hx of vitrectomy Family History Father Cancer Mother Cancer Brother Cancer Social History household members: none Smoking Status: Never smoker second hand exposure: Yes alcohol intake: never substance use type: does not use Assessment & Plan Assessment & Plan narrative: Ms. Cannon is a 75W who presents with shortness of breath and cough found to have hypoxemia from COVID pneumonia. 1. Acute respiratory failure with hypoxemia from COVID pneumonia - desaturated to 91% on room air at rest, overnight was 90% on 3-4L of oxygen - xray consistent with pneumonia, patient covid positive -started on IV remdesivir and dexamethasone -encourage proning -dvt prophylaxis ordered with SCDs and lovenox -for now trend inflammatory markers daily 2. CAD -continue aspirin and statin -patient asymptomatic currently 3. HOME, resolved -baseline creatinine 0.76, up to 1.06 no admission, now improving -secondary to covid infection -did get IV fluids in ED, will stop for now -avoid nephrotoxins -check creatinine daily 4. 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 Morbid obesity -BMI 50 -likely contributing to severity of disease -encourage working with PT 6. HTN -hold anti-hypertensives for now CODE: DNR Proxy: Urmila Jernigan, Daughter
[2021-05-08] MEDS: REMDESIVIR 100 MG in SODIUM CHLORIDE 0.9% 230 ML 250 ML IV (10:50)
[2021-05-08] MEDS: MUPIROCIN 22 GM OINT 1 APPLIC TOP ×2 (10:50→20:21)
--- NOTE | 2021-05-08 12:23 | OT.IP.EVAL ---
Current Diagnoses COVID-19 (05/06/21) Past Medical History (Last Reviewed 05/06/21 @ 18:30 by Rowdy Kathleen DO) Carpal tunnel syndrome of right wrist Cataract, left eye (~06/2016) Cellulitis Colon polyps (04/2010) Coronary artery disease Darier's disease Hx of cataract surgery (06/2016) Hx of section Hx of colonoscopy with polypectomy (04/2010) Hx of vitrectomy Hypertension Osteoarthritis (~12/2017) Osteopenia (~2016) Renal insufficiency, mild (~02/2016) Surgical History (Last Reviewed 05/06/21 @ 18:15 by JeanC laude Ng MD) Hx of cataract surgery (06/2016) Hx of section Hx of colonoscopy with polypectomy (04/2010) Hx of vitrectomy Occupational Therapy Inpatient Evaluation/Re-Eval M1 PT/OT-IP Prior Functional Status Start: 05/08/21 11:40 Freq: NEEDED Status: Active Protocol: Document 05/08/21 12:59 [facility] (Rec: 05/08/21 13:14 [facility] [id number]) Medical Review Prior Functional Status Medical History Reviewed Yes Communication able to make needs known Mobility and Gait pt stated that she is independent with all mobilities and ambulation without AD Activities of Daily Living and IADL's Completely independent with all her needs of ADl's and IADl needs. Social History Household Members none Living Arrangements House Number of Floors (Floors) One Floor Number of Stairs To Enter/Railing? ramp to enter Home Environment High Toilet,Walk in Shower, Built-In Shower Seat Home Equipment Hand Held Shower,Grab Bars In Shower Additional Social History Comment pt has an adjustable bed M2 OT-IP Current Condition Start: 05/08/21 12:59 Freq: Status: Active Protocol: Document 05/08/21 12:59 [facility] (Rec: 05/08/21 13:14 [facility] [id number]) Occupational Therapy Current Condition Current Condition Evaluation Date 05/08/21 Treatment Diagnosis Acute respiratory failure with hypoxenia from covid PNA, limitation of activities Diagnosis Onset Date 05/06/21 Post Operative Precautions Other Precautions Pt on 4L of O2. M3 OT- IP Subjective and Pain Start: 05/08/21 12:59 Freq: Status: Active Protocol: Document 05/08/21 12:59 [facility] (Rec: 05/08/21 13:14 [facility] [id number]) OT- Subjective Occupational Therapy Visit Type Type Initial Evaluation Visit Start Time 11:50 Visit Stop Time 12:23 Total Visit Minutes 33 Occupational Therapy Visit Comments Patient Comments Pt agreed to get up and use the bathroom. Patient/Caregiver Goals TO go home. OT Pain Assessment Pain When Pain Assessed At Rest Pain Present Pain Present Denied Pain M4 OT- IP ADL's Start: 05/08/21 12:59 Freq: Status: Active Protocol: Document 05/08/21 12:59 [facility] (Rec: 05/08/21 13:14 [facility] [id number]) OT [id number]-[id number] General Evaluation Self-Feeding Ability Independent OT ADL-Grooming General Evaluation Grooming Ability Independent OT ADL-Oral Care General Eval Oral Care Ability Independent OT ADL-Dressing General Eval Lower Body Dressing Ability Minimal Assistance Comments OT Dressing Comments Pt having trouble to don her socks, but states at home will not wear socks. OT ADL-Toileting General Evaluation Toileting Ability Standby Assistance Comments OT Toileting Comments Pt able to do her own hygiene and brief management needs on her own. OT ADL-Bathing Comments OT Bathing Comments NOt performed. M5 OT- IP IADL's Start: 05/08/21 12:59 Freq: Status: Active Protocol: Document 05/08/21 12:59 [facility] (Rec: 05/08/21 13:14 [facility] [id number]) OT-Instrumental Activities of Daily Living Deficits IADL Deficits Identified Deficits Home Safety Awareness Awareness of Need for Assistance at Home Good Awareness Ability to Problem Solve Emergency Able to Problem Solve Situations Home Safety Comments Pt states has a LIfe Alert. Medication Management Medication Management No Deficits Identified Money Management Money Management No Deficits Identified Meal Preparation Meal Preparation Comments Pt aware at she needs to take her time and plans on easing back to do her cooking and chores. Plant Controls Specialist Plant Controls Specialist Comments Would be beneficial for pt to have assist due to her decreased activity tolerance. M6 OT- IP Functional Cognition Start: 05/08/21 12:59 Freq: Status: Active Protocol: Document 05/08/21 12:59 [facility] (Rec: 05/08/21 13:14 [facility] [id number]) Cognitive Factors Limiting Selfcare Function Cognitive Ability Level of Alertness Alert Patient Orientation Name,Age,Birthday,Month,Date, Year,Day of Week,Place, Situation Attention Span Ability Capable of Focused Attention, Capable of Sustained Attention Ability to Follow Commands Able to Follow Multi-Step Commands Memory Description No Deficits Noted Safety Awareness Underestimates Need for Assistance Problem Solving Ability Needs Assist to Identify Solutions Cognitive Comments Cognitive Assessment Comments Pt needing cues for her to manage O2 tubing as it was getting tangled on the FWW. OT- Vision and Hearing OT- Hearing Assessment OT- Hearing Assessment WFL M7 OT- IP Mobility and Balance Start: 05/08/21 12:59 Freq: Status: Active Protocol: Document 05/08/21 12:59 [facility] (Rec: 05/08/21 13:14 [facility] [id number]) OT- Bed Mobility Assessment Supine to Sit Supine to Sit Assist Standby Assistance Sit to Supine Sit to Supine Assist Standby Assistance OT-Transfer Assessment Sit to and From Stand Sit to and from Stand Standby Assistance Transfers Transfer Ability Standby Assistance Technique Transfer Destination Bed,Chair,Toilet Transfer Technique Stand Step Pivot Devices Transfer Assistive Devices None,Gait Belt,Front Wheeled Walker Comments Mobility Comments Pt distant SBA with FWW and occasional assist to help manage the O2 tubing. Pt close SBA to transfer to and from the recliner to bed without a device. Pt on 4L of O2 and at 98% and after activity drops to 91% and after a few deep breaths able to increase to 95 %. OT- Balance Assessment Sitting Balance and Reactions Static Sitting Balance Ability Normal Dynamic Sitting Balance Ability Good Standing Balance and Reactions Static Standing Balance Ability Good Dynamic Standing Balance Ability Fair M8 OT- IP Objective Assessments Start: 05/08/21 12:59 Freq: Status: Active Protocol: Document 05/08/21 12:59 [facility] (Rec: 05/08/21 13:14 [facility] [id number]) OT Gross Range of Motion Upper Extremity Range of Motion Assessment Within Functional Limits OT Strength Upper Extremity Strength Assessment Within Functional Limits M9 OT- IP Assessment and Plan Start: 05/08/21 12:59 Freq: Status: Active Protocol: Document 05/08/21 12:59 [facility] (Rec: 05/08/21 13:14 [facility] [id number]) OT Summary Assessment and Plan Potential Rehabilitation Potential Good Analytic Complexity at Evaluation Moderate Summary OT Impairments Balance,Functional Mobility, Dressing,Bathing,Shower Transfers,Activity Tolerance Progress Towards Goals Progressing Toward Goals Assessment Summary Pt MOD complexity and main barriers are decreased activity tolerance and if having to go home with O2, difficulty to manage the tubing as a fall risk. Pt states lives alone, but has friends and neighbors to assist and also a Life Alert. Pending improvement/progress pt most likely to go home with assist and home health versus possible short skilled rehab. Goals Grooming Goal Independent Dressing Goal Independent Toileting Goal Independent Bathing Goal Independent Toilet Transfer Goal Independent Shower Transfer Goal Independent Days to Meet Goals 3 Frequency of Treatment Frequency Of Treatment Once a Day Treatment Plan OT Treatment Plan ADL Training,Functional Mobility,Patient/Family Education,Discharge Planning Other Treatment Recommendations and Next O2 management during mobility Treatment Focus and ADL needs. Discharge Recommendations OT Discharge Recommendations Home with Assistance,Home Health,SNF Rehab,Home vs SNF Transportation Needs at Discharge Private Vehicle,
--- NOTE | 2021-05-08 14:20 | PC.NURSE ---
PT DOING WELL- ABLE TO BE WEANED DOWN TO 2L NC WITH SPO2 93% HER ROOM AIR SPO2 AT REST WAS 88-89% , COUGH IS PRODUCTIVE AND STRONG- PT DENIES PAIN, AND SKIN IS AT BASELINE AND STOVALL DISCONTINUES- HAS BEEN MOVING BOWELS (INCONT AT TIMES) AND TAKING ADEQUATE DIET- POTENTIAL FOR DISCHARGE TOMORROW IF SHE CONTINUES TO IMPROVE
[2021-05-08] MEDS: ATORVASTATIN 20 MG TABLET 40 MG PO (20:20)
[2021-05-09] VITALS (8 sets, daily range): BP systolic 138–159; BP diastolic 67–91; PULSE 72–89; RESP 18–24; TEMP 36.6–36.9; O2SAT 88–95
[2021-05-09] MEDS: guaiFENesin Solution 100 MG/5 ML UDC 200 MG PO ×2 (01:49→09:00)
[2021-05-09 04:59] LABS: Hematocrit 40.6 % (36-46); Hemoglobin 13.2 g/dL (12.0-16.0); Mean Corpuscular HGB Conc 32.6 % (30-36); Mean Corpuscular Hemoglobin 27.2 PG (26-34); Mean Corpuscular Volume 83.2 fL (80-100); Platelet Count 259 X10^3/uL (150-400); Red Blood Cell Count 4.88 X10^6/uL (4.0-5.2); Red Cell Distribution Width 14.6 % (11.6-14.8); White Blood Cell Count 15.5 X10^3/uL (4.5-11.0)
[2021-05-09 05:17] LABS: BUN Creatinine Ratio 49.3 (6-22); Blood Urea Nitrogen 36 mg/dL (7-17); Calcium 8.3 mg/dL (8.4-10.2); Carbon Dioxide 26 mmol/L (22-32); Chloride 101 mmol/L (98-107); Estimated Glomerular Filt Rate > 60.0 mL/min (>60); Glucose 137 mg/dL (80-110); HEMOLYSIS < 15 (0-50); Potassium 3.8 mmol/L (3.4-5.1); Sodium 134 mmol/L (137-145)
[2021-05-09] MEDS: ASPIRIN EC 81 MG TABLET PO (09:06)
[2021-05-09] MEDS: carvediloL 3.125 MG TABLET PO ×2 (09:06→21:15)
[2021-05-09] MEDS: REMDESIVIR 100 MG in SODIUM CHLORIDE 0.9% 230 ML 250 ML IV (09:07)
--- NOTE | 2021-05-09 10:35 | CM.DPC ---
DCP: continued: case discussed in Team Rounds. OT and PT are now working with pt and Dr. Sommer says she is beginning to approach readiness for d/c. Called into room ex 2026 and spoke with pt by phone. Introduced self and role. Pt clarifies some of her home and family situation and her desired d/c plan. She does have Life Alert system it works only in my home and yard. She has a 4ww walker that she loaned to a friend and is expecting to get that back by the time she is ready for d/c. She says she is very hopeful that she will not be on home supplemental oxygen at d/c. I really don't want to have to drag that cord around with me. She says she has 4 daughters and one son and that daughters Urmila and Erica are the executors of my estate. She is not certain if this includes POA but reiterates that they all know that I don't want any heroics. When it's my time to and will do that. Asked about support when she does go home. She says her daughter Stephany Wolfe: [phone] in [facility] will be coming to stay with her for awhile to help out after she gets home. She says Stephany is currently out of town but is exected back in next day or 2. Stephany is my daughter who is vaccinated so that's why she is the one who will be helping me. Discussed HH services and encouraged consideration of same. She says she has never had this and is not interested in it. She is aware that this would be covered by her [facility]. If pt does need to d/c on oxygen would recommend continuing to encourage HH. Pt says she is very independent in her lifestyle. I love my kids but there are reasons why I prefer not to live with any of them. Went to her window to wave after out conversation and assured her that the team of dc planners would be continuing to follow her case while she was here and would help with her d/c plan as it becomes clearer.
[2021-05-09] MEDS: DEXAMETHASONE 10 MG/ML VIAL 6 MG IV (11:01)
[2021-05-09] MEDS: MUPIROCIN 22 GM OINT 1 APPLIC TOP ×2 (11:01→21:15)
[2021-05-09] MEDS: ENOXAPARIN 40 MG/0.4 ML SYRINGE SUBCUT ×2 (11:01→21:15)
[2021-05-09] MEDS: SODIUM CHLORIDE 0.9% FLUSH 10 ML IV ×2 (11:05→21:16)
--- NOTE | 2021-05-09 14:20 | PM.PN.1 ---
Subjective Subjective Date Patient Seen: 05/09/21 Interval history: Patient is being treated for COVID pneumonia with respiratory failure. She states she is feeling better though still has a cough. She does desaturate to as low as 86% on room air. Exam Vital Signs (past 8 hours): - 05/09/21 07:22 05/09/21 08:30 05/09/21 12:00 Temperature 98.5 F 97.8 F Pulse Rate 89 74 Respiratory Rate 24 22 Blood Pressure 138/81 159/91 H Pulse Oximetry 94 88 L 94 Oxygen Delivery Method Nasal Cannula Oxygen Flow Rate 2 Narrative Exam Narrative: General: Alert pleasant female in no acute distress sitting in chair Lungs: Clear to auscultation Heart: Regular rhythm Abdomen: Soft Extremities: No edema Neurological: Oriented, affect normal Objective Labs Result Diagrams: 05/09/21 04:39 05/09/21 04:39 Labs: Laboratory Results - last 24 hr 05/09/21 05/09/21 04:39 04:39 WBC 15.5 H RBC 4.88 Hgb 13.2 Hct 40.6 MCV 83.2 MCH 27.2 MCHC 32.6 RDW 14.6 Plt Count 259 Sodium 134 L Potassium 3.8 Chloride 101 Carbon Dioxide 26 BUN 36 H Creatinine 0.73 Estimated GFR > 60.0 BUN/Creatinine Ratio 49.3 H Glucose 137 H Calcium 8.3 L PFSH Medical History Carpal tunnel syndrome of right wrist Cataract, left eye (~06/2016) Cellulitis Colon polyps (04/2010) Coronary artery disease Darier's disease Hypertension Osteoarthritis (~12/2017) Osteopenia (~2016) Renal insufficiency, mild (~02/2016) Surgical History Hx of cataract surgery (06/2016) Hx of section Hx of colonoscopy with polypectomy (04/2010) Hx of vitrectomy Family History Father Cancer Mother Cancer Brother Cancer Social History household members: none Smoking Status: Never smoker second hand exposure: Yes alcohol intake: never substance use type: does not use Assessment & Plan Assessment & Plan narrative: Ms. Cannon is a 75W who presents with shortness of breath and cough found to have hypoxemia from COVID pneumonia. 1. Acute respiratory failure with hypoxemia from COVID pneumonia -still dropping O2 sats as low as 86% room air - xray consistent with pneumonia, patient covid positive -started on IV remdesivir and dexamethasone, continue meds -leukocytosis has developed secondary to dexamethasone -encourage proning -dvt prophylaxis ordered with SCDs and lovenox 2. CAD -continue aspirin and statin -patient asymptomatic currently 3. HOME, resolved -baseline creatinine 0.76, up to 1.06 no admission, now improving -secondary to covid infection -did get IV fluids in ED, will stop for now -avoid nephrotoxins 4. 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 Morbid obesity -BMI 50 -likely contributing to severity of disease -encourage working with PT 6. HTN -restarted patient's low-dose carvedilol and telmisartan per home routine CODE: DNR Proxy: Urmila Jernigan, Daughter
--- NOTE | 2021-05-09 14:53 | OT.IPNOTE ---
Pt working with VIRTUALIZATION CONSULTANT at the time as OT coming to see pt. TO check on Pt Tuesday if pt still here, no OT staff available Tuesday.
--- NOTE | 2021-05-09 15:05 | PT.IPTN ---
Current Diagnoses COVID-19 (05/06/21) Physical Therapy Treatment Note M2 PT-IP Current Condition Start: 05/08/21 11:40 Freq: NEEDED Status: Active Protocol: Document 05/08/21 09:55 AB (Rec: 05/08/21 11:56 AB [id number]) Physical Therapy Current Condition Current Condition Evaluation Date 05/08/21 Treatment Diagnosis Covid PNA; difficulty in walking Onset Date 05/06/21 Precautions Other Precautions Covid precautions M3 PT-IP Subjective Start: 05/08/21 11:40 Freq: NEEDED Status: Active Protocol: Document 05/09/21 14:39 CLB (Rec: 05/09/21 15:36 CLB [id number]) Subjective Physical Therapy Visit Type Type Treatment Note Visit Start Time 14:39 Visit Stop Time 15:05 Total Visit Minutes 26 Number of MACHINE ENGRAVER Visits 1 Physical Therapy Visit Comments Patient Comments agreeable to do PT after encouragement Therapy Pain Assessment Pain When Pain Assessed At Rest M4 PT-IP Mobility and Gait Start: 05/08/21 11:40 Freq: NEEDED Status: Active Protocol: Document 05/09/21 14:39 CLB (Rec: 05/09/21 15:36 CLB [id number]) PT-Transfer Assessment Sit to and From Stand Sit to and from Stand Standby Assistance,1 Person Assistance,Use of Upper Extremities Equipment Transfer Assistive Device Gait Belt,Front Wheeled Walker Orthotic/Prosthetic Devices or Brace: No Transfers Transfer Destination Chair,Toilet Transfer Technique ambulated Transfer Ability Level of Assist Standby Assistance,1 Person Assistance,Use of Upper Extremities Comments Mobility Comments Pt in chair upon arrival. Pt on 2L O2 with SpO2 98%. Pt stood SBA and ambulated in room w/FWW/SBA and managed her O2 line. Pt sat on toilet SBA and sachi/doff brief and performed own pericare. Pt ambulated to sink washing hands SBA. Pt then ambulated to door then back to chair sitting SBA. Pt SpO2 after tx 90% increasing to 94% within 1 minute.Pt left in chair with all needs within reach. Gait Assessment Gait Gait Assistance Required: Standby Assistance,1 Person Assist Distance (Feet) 40 Able to Maintain Weight Bearing Status Yes During Gait Assistive Devices Assistive Device Gait Belt,Front Wheeled Walker Orthotic/Prosthetic Devices or Brace: No Gait Deviations General Gait Pattern Antalgic,Decreased Stride Length,Decreased Feet Clearance,Step-to Gait Factors Limiting Gait Function Factors Limiting Gait Function Decreased Activity Tolerance, Decreased Strength,Pain,Poor Balance,Respiratory Distress Comments Gait Comments pls refer to mobility section for details M5 PT-IP Objective Assessments Start: 05/08/21 11:40 Freq: NEEDED Status: Active Protocol: Document 05/08/21 09:55 AB (Rec: 05/08/21 11:56 AB [id number]) Orientation Orientation/Cognition Level of Alertness Alert Orientation Name,Place,Situation Safety Awareness Decreased Safety Awareness Strength Lower Extremity Strength Assessment Bilaterally Impaired Hip 3/5 Knee 3+/5 Muscle Tone Muscle Tone WNL Yes Other Assessments Other Other Assessments has rashes/sores throughout the body M6 PT-IP Treatment Start: 05/08/21 11:40 Freq: NEEDED Status: Active Protocol: Document 05/08/21 09:55 AB (Rec: 05/08/21 11:56 AB [id number]) Physical Therapy Treatment Education Education Provided Safety M7 PT-IP Assessment and Plan Start: 05/08/21 11:40 Freq: NEEDED Status: Active Protocol: Document 05/09/21 14:39 CLB (Rec: 05/09/21 15:36 CLB [id number]) PT Summary Assessment and Plan Potential Rehabilitation Potential Fair Status of Condition at Evaluation Evolving Summary Impairments Pain,ROM,Strength,Balance, Coordination,Sensation, Cognition,Bed Mobility, Transfers,Gait,Activity Tolerance Assessment Summary Pt on 2L with SpO2 ranging from 98-90% during tx. Pt is SBA for all mobility with FWW and is able to manage her own O2 line. Pt lives alone and will not have any assistance at d/c. Goals Bed Mobility Goal Independent Transfer Goal Independent,Front Wheeled Walker Gait Goal Independent,Front Wheel Walker Gait Distance 100 Other Goals improve ambulation without AD 150 ft SBA Days to Meet Goals 10 Frequency of Treatment Frequency Of Treatment Once a Day Treatment Plan Physical Therapy Treatment Plan Bed Mobility Training,Transfer Training,Gait Training, Therapeutic Exercise,Balance Retraining,Discharge Planning, Hot or Cold Pack,Neuromuscular Re-ed,Coordination Retraining Precautions Other Precautions Covid precautions Recommendations To Nursing Amount of Assist Needed 1 Person Assist Discharge Recommendations PT Discharge Recommendations Home with Assistance,Home Health,SNF Rehab,Home vs SNF Equipment Needed for Home Before FWW Discharge Transportation Needs at Discharge Private Vehicle,Wheelchair/ Cabulance
--- NOTE | 2021-05-09 17:51 | PC.NURSE ---
Patient moved from ICU to AC room 208. Patient resting comfortably in chair with 2L NC and sating 95%. Call light and other personal belongings in reach. Droplet precautions initiated due to non-aerosolizing COVID.
--- NOTE | 2021-05-09 17:55 | PC.NURSE ---
rne from [facility] called to check on pt's discharge status after speaking with pt. He states I'm leaving an O2 tank on pt's porch today and she is aware.
[2021-05-09] MEDS: ATORVASTATIN 20 MG TABLET 40 MG PO (21:14)
[2021-05-10] VITALS (10 sets, daily range): BP systolic 128–139; BP diastolic 61–71; PULSE 75–84; RESP 18–20; TEMP 36.2–36.6; O2SAT 92–96
[2021-05-10] MEDS: carvediloL 3.125 MG TABLET PO ×2 (09:31→20:50)
[2021-05-10] MEDS: ENOXAPARIN 40 MG/0.4 ML SYRINGE SUBCUT ×2 (09:31→20:51)
[2021-05-10] MEDS: ASPIRIN EC 81 MG TABLET PO (09:31)
[2021-05-10] MEDS: DEXAMETHASONE 10 MG/ML VIAL 6 MG IV (09:32)
[2021-05-10] MEDS: LOSARTAN 50 MG TABLET PO (09:32)
[2021-05-10] MEDS: REMDESIVIR 100 MG in SODIUM CHLORIDE 0.9% 230 ML 250 ML IV (09:33)
[2021-05-10] MEDS: MUPIROCIN 22 GM OINT 1 APPLIC TOP (09:36)
[2021-05-10] MEDS: SODIUM CHLORIDE 0.9% FLUSH 10 ML IV ×2 (09:37→21:29)
--- NOTE | 2021-05-10 14:10 | PT-OP ANOTE ---
STREAMING MEDIA SPECIALIST unable to see pt for today's tx. Upon arrival to room inquired review with nursing (Mehnaz) proper PPE for safety before entering room, nursing reported spoke with Rosie Domingo (education staff) and unsure why therapy is being asked to see COVID patients and was told didn't feel pt is needing therapy. STREAMING MEDIA SPECIALIST provided benefits of therapy services with nurse and pt is improving after chart reviewing, Mehnaz continued with response there isn't a need for therapy to see her. STREAMING MEDIA SPECIALIST discussed with supervising PT Brenda, nursing's response of declined therapy services for pt, was recommended to discuss with hospitalist Dr Sommer pt's response to therapy improving in mobility and nursing feedback don't feel need for therapy orders to be seeing COVID pts. STREAMING MEDIA SPECIALIST spoke with Dr Sommer and was in agreement pt is improving in mobility and instructed that PT can DC patient from therapy services.
--- NOTE | 2021-05-10 14:33 | PT-IP ANOTE ---
SPIKE MACHINE HEATER unable to see pt for today's tx. Upon arrival to room inquired review with nursing (Mehnaz) proper PPE for safety before entering room, nursing reported spoke with Rosie Domingo (education staff) and unsure why therapy is being asked to see COVID patients and was told didn't feel pt is needing therapy. SPIKE MACHINE HEATER provided benefits of therapy services with nurse and pt is improving after chart reviewing, Mehnaz continued with response there isn't a need for therapy to see her. SPIKE MACHINE HEATER discussed with supervising PT Brenda, nursing's response of declined therapy services for pt, was recommended to discuss with hospitalist Dr Sommer pt's response to therapy improving in mobility and nursing feedback don't feel need for therapy orders to be seeing COVID pts. SPIKE MACHINE HEATER spoke with Dr Sommer and was in agreement pt is improving in mobility and instructed that PT can DC patient from therapy services. SPIKE MACHINE HEATER notified Brenda PT that Dr Sommer in agreement with nursing and to DC pt's therapy orders. PT will completed DC.
--- NOTE | 2021-05-10 16:34 | PM.PN.1 ---
Subjective Subjective Date Patient Seen: 05/10/21 Interval history: 75-year-old female who is being treated for COVID pneumonia with respiratory failure. Patient is feeling better last couple of days but endorses persistent cough. Currently on 2 L NC. She does desaturate to mid to upper 80s on room air with activity. Exam Vital Signs (past 8 hours): - 05/10/21 08:53 05/10/21 09:31 05/10/21 09:32 Temperature 97.1 F L Pulse Rate 81 81 Respiratory Rate 19 Blood Pressure 128/68 128/61 128/61 Pulse Oximetry 93 05/10/21 09:39 05/10/21 11:45 Temperature 97.7 F Pulse Rate 80 75 Respiratory Rate 18 20 Blood Pressure 139/65 Pulse Oximetry 96 Oxygen Delivery Method Nasal Cannula Oxygen Flow Rate 0 Narrative Exam Narrative: General: Alert pleasant female in no acute distress sitting in chair Lungs: Clear to auscultation Heart: Regular rhythm Abdomen: Soft Extremities: No edema Neurological: Oriented, affect normal Objective Labs Result Diagrams: 05/09/21 04:39 05/09/21 04:39 [facility] Medical History Carpal tunnel syndrome of right wrist Cataract, left eye (~06/2016) Cellulitis Colon polyps (04/2010) Coronary artery disease Darier's disease Hypertension Osteoarthritis (~12/2017) Osteopenia (~2016) Renal insufficiency, mild (~02/2016) Surgical History Hx of cataract surgery (06/2016) Hx of section Hx of colonoscopy with polypectomy (04/2010) Hx of vitrectomy Family History Father Cancer Mother Cancer Brother Cancer Social History household members: none Smoking Status: Never smoker second hand exposure: Yes alcohol intake: never substance use type: does not use Assessment & Plan Assessment & Plan narrative: 75W who presents with shortness of breath and cough found to have hypoxemia from COVID pneumonia. 1. Acute respiratory failure with hypoxemia from COVID pneumonia -improving though still requiring 2 L O2 with drops in sat with activity - xray consistent with pneumonia, patient covid positive -started on IV remdesivir and dexamethasone, completed 5 days of remdesivir on 05/10 -leukocytosis has developed secondary to dexamethasone -dvt prophylaxis ordered with SCDs and lovenox -patient has stable slowly improving hospital course and should be stable to discharge home Tuesday with home O2 if necessary 2. CAD -continue aspirin and statin -patient asymptomatic currently 3. HOME, resolved -baseline creatinine 0.76, up to 1.06 no admission, now improving -secondary to covid infection -did get IV fluids in ED, will stop for now -avoid nephrotoxins 4. 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 Morbid obesity -BMI 50 -likely contributing to severity of disease -encourage working with PT 6. HTN -restarted patient's low-dose carvedilol and telmisartan per home routine CODE: DNR Proxy: Urmila Delon, Daughter
[2021-05-10] MEDS: ATORVASTATIN 20 MG TABLET 40 MG PO (20:51)
--- NOTE | 2021-05-10 21:17 | PC.NURSE ---
Pt has had relatively uneventful evening. SpO2 95% 2L Pt continues w/loose cough w/clear mucus sputum up th BR independently. HL right hand intact/patent. Pt sitting in chair. Call light w/in reach, pt calls appropriately for needs. Continue w/plan of care.
[2021-05-11 01:20] VITALS: BP 131/68; PULSE 75; RESP 15; TEMP 36.6; O2SAT 93
[2021-05-11 05:02] VITALS: BP 131/64; PULSE 74; RESP 16; TEMP 36.6; O2SAT 92
[2021-05-11 07:15] VITALS: O2SAT 95
[2021-05-11 08:56] VITALS: BP 131/64
[2021-05-11] MEDS: DEXAMETHASONE 10 MG/ML VIAL 6 MG IV (08:56)
[2021-05-11] MEDS: ENOXAPARIN 40 MG/0.4 ML SYRINGE SUBCUT (08:56)
[2021-05-11] MEDS: carvediloL 3.125 MG TABLET PO (08:56)
[2021-05-11] MEDS: ASPIRIN EC 81 MG TABLET PO (08:57)
[2021-05-11 08:58] VITALS: BP 131/64
[2021-05-11] MEDS: LOSARTAN 50 MG TABLET PO (08:58)
[2021-05-11] MEDS: SODIUM CHLORIDE 0.9% FLUSH 10 ML IV (08:58)
[2021-05-11] MEDS: MUPIROCIN 22 GM OINT 1 APPLIC TOP (08:58)
--- NOTE | 2021-05-11 09:03 | OT.IPNOTE ---
Pt improving with mobility needs and already has been doing her ADL's. Therefore discharge pt from OT services, able to speak to hospitalist.
[2021-05-11 09:39] VITALS: BP 123/67; PULSE 70; RESP 18; TEMP 36.4; O2SAT 95
--- NOTE | 2021-05-11 12:22 | P.DS_ITS ---
History of Present Illness History of Present Illness Date Patient Seen: 05/11/21 Time Patient Seen: 12:22 Chief complaint: Covid +/pneumonia x4days Narrative: Per Dr. Ng, Ms. 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 Apparently 1.5 weeks ago she started feeling symptoms of cough, dry heaving, cough. She was unfortunately not vaccinated per patient because she's a redhead and she was told by her daughter that the immune response is different for redheads. She went to outpatient clinic and was tested positive for COVID on 05/02. She has since developed worsening shortness of breath which led her to present to the ED. In the ED workup was done, vitals noted mild tachycardia in the 90s, respiratory rate in the 20s, pulse ox dropped to the 91% when I took her off oxygen. Labs showed WBC 10.5, creatinine 1.06, lactate 2.1, d-dimer 929, ldh 765, crp 16.4, bnp 1360. UA unremarkable for infection. Chest xray shows bilatera peripheral infiltrates. She was given remdesivir and dexamethasone and admitted for further treatment. Discharge Providers Provider Date of admission: 05/06/21 15:41 Discharge Date: 05/11/21 Primary care physician: Neo Amezquita DO Consults: 05/07/21 10:03 Consult to Respiratory Therapy Evaluate & Treat Comment: Physician Instructions: Evaluate and treat 05/08/21 08:11 Consult to Physical Therapy Evaluate & Treat Comment: Physician Instructions: Evaluate and Treat 05/08/21 10:45 Consult to Occupational Therapy Evaluate & Treat Comment: Physician Instructions: Evaluate and treat Discharge provider: Brent Jamison DO Summary Hospital Course Discharge Diagnosis: 1. Acute respiratory failure with hypoxemia from COVID pneumonia 2. CAD 3. HOME, resolved 4. Skin rash 5. Morbid obesity 6. HTN Hospital Course: This is a 75-year-old female with a past medical history of CAD, hypertension, and obesity who was admitted with COVID-19 pneumonia and acute respiratory failure with hypoxia. She slowly improved after admission with steroids and antiviral therapy. She completed 5 days of remdesivir and dexamethasone with continued improvement. She elected for discharge home with small amounts of oxygen though she only minimally desaturated to 88% with activity on discharge. At her worst patient was on 4L via nasal cannula. It is anticipated that she will not need oxygen for very long at this point. She was instructed to obtain a pulse oximeter and has a family member staying with her for a couple of days. Time Spent with Patient Time spent: Greater than 30 minutes Exam Vital Signs (past 8 hours): - 05/11/21 05:02 05/11/21 07:15 05/11/21 08:56 Temperature 97.8 F Pulse Rate 74 Respiratory Rate 16 Blood Pressure 131/64 131/64 Pulse Oximetry 92 95 05/11/21 08:58 05/11/21 09:39 Temperature 97.6 F Pulse Rate 70 Respiratory Rate 18 Blood Pressure 131/64 123/67 Pulse Oximetry 95 Oxygen Delivery Method Nasal Cannula Oxygen Flow Rate 2 Narrative Exam Narrative: Gen: no acute distress, comfortable appearing. HEENT: moist mucous membranes, PERRL NECK: trachea midline, no JVD CV: regular rate and rhythm with no murmurs PULM: CTA bilaterally no wheezes, rhonchi, rales. ABD: soft, nontender, nondistended, no organomegaly, normal bowel sounds EXT: warm and well perfused with no edema NEURO: awake, alert and oriented, moving all extremities with no noted deficits PSYCH: pleasant, cooperative SKIN: plaques scattered on her skin including, extremities and face Objective Labs Result Diagrams: 05/09/21 04:39 05/09/21 04:39 COUNTS INCLUDE 234 BEDS AT THE [facility] Medical History Carpal tunnel syndrome of right wrist Cataract, left eye (~06/2016) Cellulitis Colon polyps (04/2010) Coronary artery disease Darier's disease Hypertension Osteoarthritis (~12/2017) Osteopenia (~2016) Renal insufficiency, mild (~02/2016) Surgical History Hx of cataract surgery (06/2016) Hx of section Hx of colonoscopy with polypectomy (04/2010) Hx of vitrectomy Family History Father Cancer Mother Cancer Brother Cancer Social History household members: none Smoking Status: Never smoker second hand exposure: Yes alcohol intake: never substance use type: does not use Discharge Plan Discharge Plan Patient Disposition: Home Provider Discharge Comment: You were admitted to the hospital with COVID-19 pneumonia requiring oxygen. You completed a course of therapy with steroids and an antiviral. I recommend you get a pulse oximeter at home. Only use oxygen if your O2 is <90% at home with rest or activity. Lower oxygen if O2 is >96% while using oxygen. you may not need oxygen for much longer as you're beginning to improve. Should you be requiring more and more oxygen please return to the hospital. Discharge orders & Medications Prescriptions: Continued ketoconazole 2 % shampoo 1 applic TOP .Q3DAYS PRN (Reason: Dry Skin) Qty: 120 RF: 1 azelastine 137 mcg (0.1 %) aerosol,spray 1 spray intranasal BID Qty: 30 RF: 0 olopatadine [Pataday Once Daily Relief] 0.2 % drops 1 drp EYE-BOTH DAILY PRN (Reason: eye itching) Qty: 2.5 RF: 0 fluocinolone and shower cap 0.01 % oil 1 ea TOP .PRN Qty: 118.28 RF: 1 [PROBIOTIC] 1 tab PO QDAY Qty: 0 RF: 0 telmisartan 40 mg tablet See Rx Instructions .ROUTE .COMPLEX Qty: 90 RF: 2 furosemide 20 mg tablet 20 mg PO DAILY PRN (Reason: edema) Qty: 30 RF: 3 carvedilol 3.125 mg tablet 3.125 mg PO BID Qty: 180 RF: 0 mupirocin 2 % ointment See Rx Instructions .ROUTE .COMPLEX Qty: 30 RF: 4 betamethasone dipropionate 0.05 % ointment 1 applictn TOP TID PRN (Reason: rash) Qty: 45 RF: 0 atorvastatin 40 mg tablet 40 mg PO QPM RF: 0 aspirin 81 mg tablet,chewable 81 mg PO DAILY RF: 0 Follow up/Referrals: Neo Amezquita DO [Primary Care Provider] - Diet/Activity/Treatments Diet: Diet as Tolerated Activity: As tolerated Oxygen: as directed above. Visit Report/Discharge Packet Instructions: DI for COVID-19 (Suspected or Confirmed ), How to Care for Someone with COVID-19 Discharge Data Primary Care Provider: Neo Amezquita
--- NOTE | 2021-05-11 12:53 | PC.NURSE ---
Discharge note: Pt discharged home with friend Blank Zuñiga driving her. IV discontinued. Pt showered and was off oxygen for about 20-30 min. Rechecked O2sat on Room air and sat was 90%. Pt continues to cough intermittently and spit into tissue. Instructed pt to continue to stay home and out of public locations for 10-14 days. Instructed pt she should not go into public spaces as long as she is continuing to cough. Pt states she has a mammogram on May 18 because they found something on a CT scan and now they are checking my breasts. Reviewed all paperwork with patient, including Covid precautions, meds to continue, stroke education, activity/use of oxygen. Patient donned mask and wheeled to car. All belongings went with patient.
--- NOTE | 2021-05-11 16:52 | CM.DANOTE ---
DCP/continued: Received notification from provider that patient medically stable for d/c today. Home 02 indicated. No additional d/c planning needs identified. P: Home today. SISI De La Cruz
== END 2021-05-11 13:07 | disposition home or self-care (01) | DRG 177 ==
LOC: ED 15:41 → AC 15:43 → ICU 05-07 06:40 → AC 05-07 14:53 → ICU 05-07 14:53 → AC 05-11 08:46
PROVIDERS: Admitting Provider Internal Medicine; Emergency Provider Emergency Medicine; PCP Family Medicine; Referring Provider Emergency Medicine; Visit Provider Internal Medicine
DX: U07.1 COVID-19 (principal); J12.82 Pneumonia due to coronavirus disease 2019; J96.01 Acute respiratory failure with hypoxia; N17.9 Acute kidney failure, unspecified; Z68.43 Body mass index [BMI] 50.0-59.9, adult; I10 Essential (primary) hypertension; I25.10 Atherosclerotic heart disease of native coronary artery without angina pectoris; R21 Rash and other nonspecific skin eruption; E66.01 Morbid (severe) obesity due to excess calories
CPT/HCPCS: 36415; 51702; 71045; 80048; 80053; 81001; 82550; 82553; 82728; 83605; 83615; 83880; 84145; 84484; 85025; 85027; 85379; 86140; 87040; 87797; 93005; 93010; 94762; 96361; 96365; 96375; 97116; 97162; 97166; 97530; 99285; J1100; J1650

== ENCOUNTER → 2021-06-10 12:38 | Outpatient (CLI) | payer OTHER, MEDICAID, SELFPAY ==
[2021-05-06 19:31] VITALS: BMI 49.9
--- NOTE | 2021-06-10 12:38 | DI.MG.S_ITS ---
BILATERAL DIGITAL DIAGNOSTIC MAMMOGRAM 3D/2D: 06/10/2021 CLINICAL: Diagnostic mammogram. Family history of breast cancer. Comparison is made to exams dated: 03/28/2019 mammogram, 03/24/2017 mammogram, 12/30/2015 mammogram, and 12/30/2015 ultrasound, 03/30/[address] - [facility]. There are scattered fibroglandular elements in both breasts. No significant masses, calcifications, or other findings are seen in either breast. IMPRESSION: INCOMPLETE: NEEDS ADDITIONAL IMAGING EVALUATION There is no abnormality seen in the left axilla to correspond with the prior chest CT finding in the left axilla, however, ultrasound is recommended. Ultrasound will be performed immediately following the current exam. This exam was interpreted at Station ID: [id number]. NOTE: For mammograms, a report in lay terms will be sent to the patient. Approximately 15% of breast malignancies will not be visualized mammographically. In the management of a palpable breast mass, a negative mammogram must not discourage biopsy of a clinically suspicious lesion. Electronically Signed By: Angel Mason M.D. ddp/:06/10/2021 13:26:36 ACR BI-RADS Category 0: Incomplete [id number]
--- NOTE | 2021-06-10 12:38 | DI.US.S_ITS ---
ULTRASOUND OF LEFT AXILLA: 06/10/2021 CLINICAL: Left axillary lymph node seen on CT. Comparison is made to exams dated: 06/10/2021 mammogram, 03/28/2019 mammogram, 03/24/2017 mammogram, 12/30/2015 ultrasound, 12/30/2015 mammogram, and 06/30/2015 ultrasound [facility]. Color flow and real-time ultrasound of the left axilla were performed on the areas of interest. There is a 1.7 cm x 1.3 cm x 1.3 cm oval lymph node with indistinct and circumscribed margins in the left axilla. This oval lymph node is hypoechoic with no fatty hilum. This correlates with recent chest CT findings. Color flow imaging demonstrates that there is vascularity present. IMPRESSION: SUSPICIOUS OF MALIGNANCY The 1.7 cm x 1.3 cm x 1.3 cm oval lymph node is suspicious of malignancy. An ultrasound guided biopsy is recommended. The findings were discussed with the patient at the conclusion of the study by Dr. Catherine. This exam was interpreted at Station ID: [id number]. Electronically Signed By: Angel pacheco/:06/10/2021 14:29:43 letter sent: Biopsy Required Ultrasound BI-RADS: 4 Suspicious for malignancy
== END ==
PROVIDERS: PCP Family Medicine; Referring Provider Family Medicine; Visit Provider Family Medicine
DX: I89.8 Other specified noninfective disorders of lymphatic vessels and lymph nodes (principal); R92.8 Other abnormal and inconclusive findings on diagnostic imaging of breast
CPT/HCPCS: 76642; 77066; G0279

== ENCOUNTER → 2021-06-30 09:37 | Outpatient (CLI) | payer OTHER, MEDICAID, SELFPAY ==
[2021-05-06 19:31] VITALS: BMI 49.9
--- NOTE | 2021-06-30 | DI.US.S_ITS ---
PROCEDURE: US AXILLARY ONLY LT COMPARISON: June 10, 2021. INDICATIONS: POSSIBLE BIOPSY FOR ENLARGED NODE FINDINGS: A hypoechoic lesion is seen in the left axilla, measuring 1.1 x 1.5 x 1.1 cm; previously measuring up to 1.5 cm. Central vascularity is demonstrated, likely reflecting a fatty hilum. IMPRESSION: Hypoechoic lesion in the left axilla as detailed above, which may reflect a resolving reactive lymph node. Consider short-term, three-month follow-up to ensure decreasing size. Findings and recommendation were discussed with the ordering provider at the conclusion of the examination. Dictated by: Jaron Montero M.D. on 06/30/2021 at 12:32 Approved by: Jaron Montero M.D. on 06/30/2021 at 12:35
== END ==
PROVIDERS: PCP Family Medicine; Referring Provider Family Medicine; Visit Provider Family Medicine
DX: R59.0 Localized enlarged lymph nodes
CPT/HCPCS: 76882

== ENCOUNTER → 2021-10-01 11:57 | Outpatient (CLI) | payer OTHER, MEDICAID, SELFPAY ==
[2021-05-06 19:31] VITALS: BMI 49.9
--- NOTE | 2021-10-01 11:58 | DI.US.S_ITS ---
ULTRASOUND OF LEFT BREAST AND AXILLA: 10/01/2021 CLINICAL: Short term follow up for the left axilla. Comparison is made to exams dated: 06/30/2021 ultrasound, 06/10/2021 ultrasound, 06/10/2021 mammogram, 03/28/2019 mammogram, and 03/24/2017 mammogram - [facility]. Color flow ultrasound of the left breast axilla was performed. Frazier scale images of the real-time examination were reviewed. There is a 1.5 cm x 1.3 cm x 1.1 cm oval enlarged lymph node with a circumscribed margin in the left axilla. This oval enlarged lymph node is hypoechoic with no fatty hilum. This abnormality is not significantly changed and correlates with CT findings. Color flow imaging demonstrates that there is vascularity present. Prior biopsy attempt was aborted as the patient reports an allergy to local anesthetics. If a future biopsy is needed, it may need to be performed with support from Anesthesia. IMPRESSION: PROBABLY BENIGN The 1.5 cm x 1.3 cm x 1.1 cm oval enlarged lymph node is probably benign. A follow-up left ultrasound in 6 months is recommended to demonstrate stability. This exam was interpreted at Station ID: [id number]. Electronically Signed By: Alverto Joyce M.D. ar/:10/01/2021 13:08:31 letter sent: Followup Recommended Ultrasound BI-RADS: 3 Probably benign
== END ==
PROVIDERS: PCP Family Medicine; Referring Provider Family Medicine; Visit Provider Family Medicine
DX: R59.1 Generalized enlarged lymph nodes (principal)
CPT/HCPCS: 76882

== ENCOUNTER → 2022-04-07 14:42 | Outpatient (CLI) | payer OTHER, MEDICAID, SELFPAY ==
[2021-05-06 19:31] VITALS: BMI 49.9
--- NOTE | 2022-04-07 14:44 | DI.US.S_ITS ---
LIMITED ULTRASOUND OF LEFT BREAST AND AXILLA: 04/07/2022 CLINICAL: Follow-up left axillary mass. Comparison is made to exams dated: 10/01/2021 ultrasound, 06/30/2021 ultrasound, 06/10/2021 ultrasound, 06/10/2021 mammogram, and 03/28/2019 mammogram - [facility]. Color flow and real-time ultrasound of the left breast axilla were performed. Frazier scale images of the real-time examination were reviewed. There is a 1.5 cm x 1.2 cm x 1.1 cm oval enlarged lymph node with a circumscribed margin in the left axilla. This oval enlarged lymph node is hypoechoic with no fatty hilum. This abnormality is not significantly changed. Color flow imaging demonstrates that there is vascularity adjacent. Prior biopsy attempt was aborted as the patient reports an allergy to local anesthetics. If a future biopsy is needed, it may need to be performed with support from Anesthesia. This was an incidental finding initially on CT Chest 04/08/2021. Patient denies pain. The abnormality is not palpable. IMPRESSION: PROBABLY BENIGN Stable enlarged lymph node is consistent is probably benign. Less likely oil cyst. A follow-up ultrasound in 6 months is recommended to demonstrate continued stability. Patient will be due for mammogram at that time. Discussion with the patient about possible biopsy. Joint decision making to continue to follow this finding with imaging. Patient is advised to monitor for significant change. MRI was felt to be less helpful for evaluation of this finding. But could be helpful to evaluate the breast and could be considered. This exam was interpreted at Station ID: [id number]. Electronically Signed By: Roosevelt Newman M.D. [facility] [place]/:04/07/2022 15:32:33 letter sent: Followup Recommended Ultrasound BI-RADS: 3 Probably benign
== END ==
PROVIDERS: PCP Family Medicine; Referring Provider Family Medicine; Visit Provider Family Medicine
DX: R92.8 Other abnormal and inconclusive findings on diagnostic imaging of breast; N63.31 Unspecified lump in axillary tail of the right breast; R59.0 Localized enlarged lymph nodes
CPT/HCPCS: 76882

== ENCOUNTER → 2022-09-20 09:44 | Outpatient (CLI) | payer OTHER, MEDICAID, SELFPAY ==
[2021-05-06 19:31] VITALS: BMI 49.9
[2022-09-20 10:38] LABS: Alanine Aminotransferase 19 IU/L (<35); Albumin 3.8 g/dL (3.5-5.0); Alkaline Phosphatase 83 U/L (38-126); Aspartate Aminotransferase 26 IU/L (14-36); BUN Creatinine Ratio 29.6 (6-22); Bilirubin Total 0.8 mg/dL (0.2-1.3); Blood Urea Nitrogen 24 mg/dL (7-17); Calcium 9.1 mg/dL (8.4-10.2); Carbon Dioxide 33 mmol/L (22-32); Chloride 99 mmol/L (98-107); Cholesterol 141 mg/dL (140-199); Estimated Glomerular Filt Rate > 60 mL/min (>60); Globulin 3.7 g/dL (1.7-4.1); Glucose 113 mg/dL (80-110); HDL Cholesterol 53 mg/dL (40-60); HEMOLYSIS < 15 (0-50); LDL Cholesterol Calculated 72 mg/dL (<100); Potassium 4.1 mmol/L (3.4-5.1); Sodium 140 mmol/L (137-145); Total Protein 7.5 g/dL (6.3-8.2); Triglycerides 82 mg/dL (35-150)
== END ==
PROVIDERS: PCP Family Medicine; Referring Provider Internal Medicine Cardiovascular Disease; Visit Provider Internal Medicine Cardiovascular Disease
DX: I10 Essential (primary) hypertension (principal)
CPT/HCPCS: 36415; 80053; 80061

== ENCOUNTER → 2023-03-17 12:28 | Outpatient (CLI) | payer OTHER, MEDICAID, SELFPAY ==
[2021-05-06 19:31] VITALS: BMI 49.9
--- NOTE | 2023-03-17 12:29 | DI.US.S_ITS ---
ULTRASOUND OF LEFT BREAST AND AXILLA: 03/17/2023 CLINICAL: Late 6 month follow up. Comparison is made to exams dated: 04/07/2022 ultrasound, 10/01/2021 ultrasound, 06/30/2021 ultrasound, 06/10/2021 ultrasound, 06/10/2021 mammogram, and 03/28/2019 mammogram - [facility]. Color flow and real-time ultrasound of the left breast axilla were performed. Frazier scale images of the real-time examination were reviewed. There is a 1.4 cm x 1.4 cm x 1 cm oval hypoechoic region within an enlarged circumscribed lymph node measuring 2.4 cm in the left axilla. This oval enlarged lymph node is hypoechoic with no fatty hilum. This abnormality is not significantly changed. Color flow imaging demonstrates that there is an adjacent vascularity. IMPRESSION: SUSPICIOUS OF MALIGNANCY The 1.4 cm hypoechoic oval lesion within an enlarged lymph node in the left axilla. This abnormality is not significantly changed in size but persistently demonstrates an abnormal appearance. This could represent an indolent neoplasm other than breast cancer metastasis such as lymphoma. Overall is at a low suspicion for malignancy. An ultrasound guided biopsy is recommended. Patient reports prior allergic reaction to topical lidocaine, prior allergies, and a blistering skin disease. A 18g temno needle biopsy or spinal needle FNA could probably be preformed without sedation or lidocaine. Alternatively, lidocaine use testing could be preformed prior to the procedure. Exam findings were discussed with the patient. Call was made to the ordering providers office. This exam was interpreted at Station ID: [id number]. Electronically Signed By: Roosevelt Newman M.D. [facility] [place]/:03/17/2023 13:28:46 letter sent: Biopsy Required Ultrasound BI-RADS: 4a Low suspicion for malignancy
== END ==
PROVIDERS: PCP Family Medicine; Referring Provider Family Medicine; Visit Provider Family Medicine
DX: N63.32 Unspecified lump in axillary tail of the left breast (principal); R59.0 Localized enlarged lymph nodes
CPT/HCPCS: 76882

== ENCOUNTER → 2023-05-19 09:49 | Outpatient (CLI) | payer OTHER, MEDICAID, SELFPAY ==
[2021-05-06 19:31] VITALS: BMI 49.9
[2023-05-19 11:19] LABS: BUN Creatinine Ratio 26.8 (6-22); Blood Urea Nitrogen 19 mg/dL (7-17); Calcium 9.1 mg/dL (8.4-10.2); Carbon Dioxide 31 mmol/L (22-32); Chloride 102 mmol/L (98-107); Cholesterol 184 mg/dL (140-199); Estimated Glomerular Filt Rate > 60 mL/min (>60); Glucose 93 mg/dL (80-110); HDL Cholesterol 50 mg/dL (40-60); HEMOLYSIS < 15 (0-50); LDL Cholesterol Calculated 115 mg/dL (<100); Potassium 4.2 mmol/L (3.4-5.1); Sodium 139 mmol/L (137-145); Triglycerides 93 mg/dL (35-150)
[2023-05-19 11:22] LABS: High Sensitivity CRP - Cardiac 6.6 mg/L (1.0-3.0)
[2023-05-19 12:20] LABS: Creatinine Urine Random 132.9 mg/dL
[2023-05-19 12:24] LABS: Microalbumi Creatinin Ratio Ur 18.8 ug/mg CR (<30); Microalbumin Urine Random 2.5 mg/dL (0-1.6)
== END ==
PROVIDERS: PCP Family Medicine; Referring Provider Family Medicine; Visit Provider Family Medicine
DX: I10 Essential (primary) hypertension (principal); I87.2 Venous insufficiency (chronic) (peripheral); R60.9 Edema, unspecified
CPT/HCPCS: 36415; 80048; 80061; 82043; 82570; 86140

== ENCOUNTER → 2023-10-04 12:34 | Outpatient (CLI) | payer OTHER, MEDICAID, SELFPAY ==
[2021-05-06 19:31] VITALS: BMI 49.9
--- NOTE | 2023-10-04 | DI.ECHO.S_ITS ---
[facility] +---------+ : : [address] : : : : [id number] : : : : Phone: [phone]---------+ Echocardiogram Report + + :Name: RONN SALAZAR Study Date: 10/04/2023 Height: 62 in : :[facility] ReadingLocation: Weight: 274 lb: : Gender: Female BSA: 2.2 m2 : :: 1945 Age: 77 yrs : :Reason For Study: HYPERTENSION : :Ordering Physician: EPHRAIM, : :ESTHELA Mckeon Performed By: Annie Galvan : :Referring: ESTHELA EY : + + Interpretation Summary The left ventricle is normal in size. The left ventricular ejection fraction is normal. The ejection fraction is estimated to be 55-60%. The right ventricle is normal in size and function. There is mild mitral regurgitation. There is mild aortic regurgitation. There is mild tricuspid regurgitation. The right ventricular systolic pressure is estimated to be at least 40 mmHg based on an estimated right atrial pressure of 15 mm Hg. There is mild luminal irregularity and echogenicity in the abdominal aorta, suggestive of aortic atherosclerotic disease. Procedure: A two-dimensional transthoracic echocardiogram with color flow and Doppler was performed. The study quality was technically adequate. There is no prior echocardiogram noted for this patient. The patient was in sinus rhythm with heart rates between 64-76 bpm during the exam. Left Ventricle: The left ventricle is normal in size. Left ventricular wall thickness is mildly increased. There is no thrombus. The ejection fraction is estimated to be 55-60%. The left ventricular ejection fraction is normal. There are no focal wall motion abnormalities. Diastolic parameters suggest a relaxation abnormality of the left ventricle, consistent with probable normal filling pressures. Right Ventricle: The right ventricle is normal in size and function. Atria: The left atrium is severely dilated. Right atrial size is normal. There is no Doppler evidence for an interatrial shunt. Mitral Valve: There is mild mitral annular calcification. The mitral valve leaflets are slightly calcified. There is mild mitral regurgitation. Aortic Valve: The aortic valve is trileaflet. The aortic valve opens well. There is no aortic valve stenosis. There is mild aortic regurgitation. Tricuspid Valve: The tricuspid valve is normal. There is mild tricuspid regurgitation. The right ventricular systolic pressure is estimated to be at least 40 mmHg based on an estimated right atrial pressure of 15 mm Hg. Pulmonic Valve: The pulmonic valve leaflets are thin and pliable; valve motion is normal. There is mild pulmonic regurgitation. Great Vessels: The aortic root is normal size. The ascending aorta is at the upper limits of normal in size. There is mild luminal irregularity and echogenicity in the abdominal aorta, suggestive of aortic atherosclerotic disease. The IVC is dilated (diameter is greater than 2.1 cm) and it collapses less than 50% with a sniff. This suggests a high right atrial pressure of 15 mm Hg. Pericardium/ Pleura There is no pericardial effusion. There is no pleural effusion. MMode/2D Measurements & Calculations LVIDd: 4.9 cm LVOT diam: 2.2 cm LVIDs: 3.6 cm Ao root diam: 3.4 cm FS: 26.8 % asc Aorta Diam: 3.7 cm EPSS: 1.1 cm Ao Arch Diam (Prox Trans): 3.1 cm IVSd: 1.1 cm LVPWd: 1.0 cm LV bingham. diameter/BSA (cm/m^2): 2.2 LV sys. diameter/BSA (cm/m^2): 1.6 LA A2 area: 29.2 cm2 RA long axis: 6.4 cm LA A4 area: 24.5 cm2 RA area: 23.2 cm2 LA length (vol): 5.9 cm RA vol: 71.4 ml LA vol: 102.8 ml RA : 32.7 ml/m2 LA vol index: 47.1 ml/m2 IVC diam: 2.3 cm RVD1 (basal): 3.9 cm RVD2 (mid): 3.1 cm TAPSE: 2.0 cm Doppler Measurements & Calculations Ao V2 max: 128.9 cm/sec LVOT Max Norm: 86.0 cm/sec Ao V2 mean: 88.7 cm/sec LV V1 max P.0 mmHg Ao max P.6 mmHg LV V1 VTI: 23.9 cm Ao mean P.5 mmHg AMY(I,D): 3.1 cm2 Ao V2 VTI: 28.7 cm AMY(V,D): 2.5 cm2 sev ratio: 0.83 AMY indexed to BSA (cm^2/m^2): 1.4 MV E max norm: 46.9 cm/sec TR max norm: 251.9 cm/sec MV A max norm: 72.0 cm/sec TR max P.4 mmHg MV E/A: 0.65 PA V2 max: 96.0 cm/sec Med Peak E' Norm: 4.6 cm/sec PA V2 mean: 65.0 cm/sec E/E' med: 10.3 PA mean P.9 mmHg Lat Peak E' Norm: 5.5 cm/sec PA pr(Accel): 49.9 mmHg E/E' lat: 8.5 E/e' average: 9.4 MV dec time: 0.28 sec SV(LVOT): 88.6 ml Reading Physician:12:05 PM
[2023-10-04 13:09] LABS: Add Manual Diff / Slide Review NO; Basophils Absolute Auto 0 /uL (0-100); Basophils Percent Auto 0.6 % (0-2); Eosinophils Absolute Auto 100 /uL (0-450); Eosinophils Percent Auto 2.8 % (2-4); Hematocrit 37.4 % (36-46); Hemoglobin 12.3 g/dL (12.0-16.0); Lymphocytes Absolute Auto 1600 /uL (1100-4500); Lymphocytes Percent Auto 29.2 % (25-40); Mean Corpuscular Hemoglobin 28.3 PG (26-34); Mean Corpuscular Volume 85.8 fL (80-100); Monocytes Absolute Auto 400 /uL (0-900); Neutrophils Absolute Auto 3200 /uL (1500-7000); Neutrophils Percent Auto 60.4 % (50-75); Platelet Count 205 X10^3/uL (150-400); Red Blood Cell Count 4.36 X10^6/uL (4.0-5.2); Red Cell Distribution Width 13.9 % (11.6-14.8); White Blood Cell Count 5.3 X10^3/uL (4.5-11.0)
[2023-10-04 13:35] LABS: Alanine Aminotransferase 15 IU/L (<35); Albumin 3.7 g/dL (3.5-5.0); Albumin Globulin Ratio 1.1 (1.0-2.8); Alkaline Phosphatase 62 U/L (38-126); Aspartate Aminotransferase 25 IU/L (14-36); BUN Creatinine Ratio 21.5 (6-22); Bilirubin Total 0.8 mg/dL (0.2-1.3); Blood Urea Nitrogen 14 mg/dL (7-17); Calcium 9.3 mg/dL (8.4-10.2); Carbon Dioxide 29 mmol/L (22-32); Chloride 102 mmol/L (98-107); Cholesterol 175 mg/dL (140-199); Estimated Glomerular Filt Rate > 60 mL/min (>60); Globulin 3.4 g/dL (1.7-4.1); Glucose 92 mg/dL (80-110); HDL Cholesterol 53 mg/dL (40-60); HEMOLYSIS < 15 (0-50); LDL Cholesterol Calculated 105 mg/dL (<100); Potassium 4.1 mmol/L (3.4-5.1); Sodium 138 mmol/L (137-145); Total Protein 7.1 g/dL (6.3-8.2); Triglycerides 87 mg/dL (35-150)
[2023-10-04 14:01] LABS: Thyroid Stimulating Hormone 1.32 uIU/mL (0.47-4.68)
== END ==
LOC: ECHO 12:35
PROVIDERS: PCP Family Medicine; Referring Provider Nurse Practitioner; Visit Provider Nurse Practitioner
DX: I08.3 Combined rheumatic disorders of mitral, aortic and tricuspid valves (principal); I10 Essential (primary) hypertension; R53.83 Other fatigue; E78.5 Hyperlipidemia, unspecified
CPT/HCPCS: 36415; 80053; 80061; 84443; 85025; 93306

== ENCOUNTER → 2024-02-01 08:09 | Outpatient (CLI) | payer OTHER, MEDICAID, SELFPAY ==
[2021-05-06 19:31] VITALS: BMI 49.9
--- NOTE | 2024-02-01 | PATH_ITS ---
[facility] Accession Number: [id number] No. of containers..01 Tissue . 01 Material submitted: . axillary tail of breast - LEFT AXILLARY NODE . 01 Diagnosis: LEFT AXILLARY NODE, BIOPSY: Acellular specimen, nondiagnostic. MRV 02/08/2024 1857 Local . 01 Comment: Concurrent flow cytometry shows extremely hypocellular specimen, insufficient for further analysis. Please see flow cytometry report under #[id number]. . 01 Electronically signed: . Alexander Merchant MD, Pathologist NPI- [id number] . 01 Gross description: . Received in formalin with two identifiers and no additional designation, is a very scant amount of possible casillas soft tissue fragments received on Telfa paper. Due to the minimal amount of tissue, the specimen is sent to Cytology for cell block creation in cassette A1 in the hopes the specimen survives processing. . The specimen was removed on 02/01/2024 at 1101 hours, time in formalin not provided, cold ischemic time cannot be calculated, total fixation time is less than 72 hours. ([id number]) /YARITZA 02/02/2024 0855 Local . 01 Pathologist provided ICD-10: R92.8, R59.0, N63.20 . 01 CPT . 102174 Performed at: 01 [facility] [address] [place] [address] [address], [place], [place] [id number] MD Angel Raygoza MD Phone: [phone]
--- NOTE | 2024-02-01 08:12 | DI.US.S_ITS ---
ULTRASOUND GUIDED BIOPSY LEFT BREAST: 02/01/2024 CLINICAL: Left axillary node biopsy. PATIENT CONSENT: Risks (minor bleeding, infection, vasovagal reaction and repeat procedure), benefits and alternatives were explained to the patient and written informed consent was obtained. Correlation is made to exams dated: 03/17/2023 ultrasound, 04/07/2022 ultrasound, 10/01/2021 ultrasound, and 06/30/2021 ultrasound - [facility]. CT chest 03/28/2019. An ultrasound guided biopsy using real-time ultrasound was performed for the oval node located in the left axilla. This was described on the previous ultrasound report. The skin was prepped in the usual manner. Local anesthetic was administered to the access site. The abnormality was approached from the lateral aspect. A 20 gauge biopsy needle was placed adjacent to the abnormality under ultrasound guidance. Once the needle was documented to be in the correct location, three specimens were obtained. The specimens were sent to the laboratory for pathological analysis. IMPRESSION: ULTRASOUND GUIDED BIOPSY BENIGN Ultrasound guided biopsy of the node in the left axilla was successful. Pathology demonstrate Acellular specimen, non diagnostic. Pathology results are discordant with imaging findings. Recommend re-biopsy. Due for mammograms. Chest CT may be helpful to evaluate the lymph node. This exam was interpreted at Station ID: [id number]. Paco Newman M.D. ,[facility] [place]/:02/10/2024 12:44:20
== END ==
PROVIDERS: PCP Family Medicine; Referring Provider Family Medicine; Visit Provider Family Medicine
DX: R92.8 Other abnormal and inconclusive findings on diagnostic imaging of breast (principal); N63.32 Unspecified lump in axillary tail of the left breast
CPT/HCPCS: 38505; 76942

== ENCOUNTER → 2024-02-24 12:53 | Outpatient (CLI) | payer OTHER, MEDICAID, SELFPAY ==
[2021-05-06 19:31] VITALS: BMI 49.9
--- NOTE | 2024-02-24 | PATH_ITS ---
[facility] Accession Number: [id number] No. of containers..01 Tissue . 01 Material submitted: . lymph node - LT AXILLA LN . 01 Diagnosis: Lymph node, left axilla, biopsy: Minute fragments of benign lymphoid tissue. Negative for malignancy. See comment. --- Comment: Minute fragments of benign adipose vascular tissue with lymphoid aggregates. However, if there is high suspicion of neoplasm in this lymph node, then an excisional lymph node biopsy would be recommended along with flow cytometry studies. Immunohistochemical stains performed on part A with appropriate controls show: VIKI keratin is negative. CD3 highlights predominant unremarkable T cells population in lymphoid aggregates. CD20 highlights small unremarkable B cells. Cyclin-D1 is negative. BCL-6 is negative. BCL-2 highlights T cells and extrafollicular B cells. Technical Note: The immunohistochemical stains reported were performed at [email or web address] ([address], [facility] [address]). They were developed and their performance characteristics determined by [email or web address], [employer]. They have not been cleared or approved by the U.S. Food and Drug Administration, although such approval is not required for analyte-specific reagents of this type. TXN 02/29/2024 1655 Local . 01 Electronically signed: . Fran Tyler MD, Pathologist NPI- [id number] . 01 Gross description: . Received in formalin, labeled with two identifiers and no additional designation, are multiple yellow to casillas soft tissue fragments received on Telfa paper, aggregating to 0.7 x 0.6 x 0.1 cm. Filtered and submitted entirely in cassette A1. . The specimen was removed on 02/24/2024 at 14:05. Time in formalin not provided. Cold ischemic time cannot be calculated. Total fixation time is approximately 53 hours. ([id number]) /FRR 02/25/2024 1432 Local . 01 Pathologist provided ICD-10: R92.8 . 01 CPT . 455736, Q87800, B51326 Specimen Comment: A courtesy copy of this report has been sent to [facility] Performed at: [address] [facility] [address], [place], [place] [id number] MD Angel Raygoza MD Phone: [phone]
--- NOTE | 2024-02-24 12:54 | DI.US.S_ITS ---
PROCEDURE: US BIOPSY LT AXILLA COMPARISON: [facility], , US BIOPSY LT AXILLA, 02/01/2024, 8:22. INDICATIONS: inadequate tissue sample FINDINGS: The left axilla was prepared for sterile procedure. The left axillary lymph node was visualized under ultrasound. Lidocaine was applied to the site. Six core biopsies were obtained with a tenTwylah biopsy gun. No complication. IMPRESSION: Uncomplicated biopsy of the left axillary chain lymph node with ultrasound guidance. Dictated by: Cody Angel M.D. on 02/24/2024 at 14:44 Approved by: Cody Angel M.D. on 02/24/2024 at 14:45
== END ==
LOC: US 12:53
PROVIDERS: PCP Family Medicine; Referring Provider Family Medicine; Visit Provider Family Medicine
DX: R92.8 Other abnormal and inconclusive findings on diagnostic imaging of breast (principal); N63.31 Unspecified lump in axillary tail of the right breast
CPT/HCPCS: 38505; 76942

== ENCOUNTER → 2025-01-23 12:08 | Outpatient (CLI) | payer OTHER, MEDICAID, SELFPAY ==
[2021-05-06 19:31] VITALS: BMI 49.9
[2025-01-23 13:37] LABS: Alanine Aminotransferase 15 IU/L (<35); Albumin 3.9 g/dL (3.5-5.0); Albumin Globulin Ratio 1.3 (1.0-2.8); Alkaline Phosphatase 61 U/L (38-126); Aspartate Aminotransferase 29 IU/L (14-36); BUN Creatinine Ratio 29.2 (6-22); Bilirubin Total 0.8 mg/dL (0.2-1.3); Blood Urea Nitrogen 19 mg/dL (7-17); Calcium 9.2 mg/dL (8.4-10.2); Carbon Dioxide 30 mmol/L (22-32); Chloride 103 mmol/L (98-107); Cholesterol 137 mg/dL (140-199); Estimated Glomerular Filt Rate > 60 mL/min (>60); Globulin 2.9 g/dL (1.7-4.1); Glucose 91 mg/dL (70-99); HDL Cholesterol 58 mg/dL (40-60); HEMOLYSIS < 15 (0-50); LDL Cholesterol Calculated 67 mg/dL (<100); Potassium 4.2 mmol/L (3.4-5.1); Sodium 139 mmol/L (137-145); Total Protein 6.8 g/dL (6.3-8.2); Triglycerides 59 mg/dL (35-150)
== END ==
PROVIDERS: PCP Family Medicine; Referring Provider Nurse Practitioner; Visit Provider Nurse Practitioner
DX: I10 Essential (primary) hypertension (principal); E78.5 Hyperlipidemia, unspecified
CPT/HCPCS: 36415; 80053; 80061

== ENCOUNTER → 2025-03-18 11:06 | Outpatient (CLI) | payer OTHER, MEDICAID, SELFPAY ==
[2021-05-06 19:31] VITALS: BMI 49.9
--- NOTE | 2025-03-18 11:07 | DI.US.S_ITS ---
PROCEDURE: US ARTERIAL DUPLEX LE BI INDICATIONS: pain in both lower ext TECHNIQUE: Color and pulse Doppler interrogation was performed of both lower extremity arterial systems, with image documentation. COMPARISON: None. FINDINGS: Right lower extremity: Common femoral artery: 169 cm/sec, with triphasic flow. Deep femoral artery: 77 cm/sec, with triphasic flow. Proximal superficial femoral artery: 124 cm/sec, with triphasic flow. Mid superficial femoral artery: 95 cm/sec, with triphasic flow. Distal superficial femoral artery: 109 cm/sec, with triphasic flow. Popliteal artery: 60 cm/sec, with biphasic flow. Posterior tibial artery: 116 cm/sec, with biphasic flow. Anterior tibial artery/dorsalis pedis: 114 cm/sec, with triphasic flow. Frazier-scale imaging description: No focal hemodynamically significant stenosis. Left lower extremity: Common femoral artery: 162 cm/sec, with triphasic flow. Deep femoral artery: 67 cm/sec, with triphasic flow. Proximal superficial femoral artery: 160 cm/sec, with triphasic flow. Mid superficial femoral artery: 100 cm/sec, with triphasic flow. Distal superficial femoral artery: 102 cm/sec, with biphasic flow. Popliteal artery: 125 cm/sec, with biphasic flow. Posterior tibial artery: 107 cm/sec, with biphasic flow. Anterior tibial artery/dorsalis pedis: 120 cm/sec, with triphasic flow. Frazier-scale imaging description: No focal hemodynamically significant stenosis. IMPRESSION: No focal hemodynamically significant stenosis. Dictated by: Chely Gilman M.D. on 03/18/2025 at 17:38 Approved by: Chely Gilman M.D. on 03/18/2025 at 17:40
== END ==
PROVIDERS: PCP Family Medicine; Referring Provider Internal Medicine Cardiovascular Disease; Visit Provider Internal Medicine Cardiovascular Disease
DX: M79.604 Pain in right leg (principal); M79.605 Pain in left leg
CPT/HCPCS: 93925

== ENCOUNTER → 2025-04-15 11:00 | Outpatient (CLI) | payer OTHER, MEDICAID, SELFPAY ==
[2021-05-06 19:31] VITALS: BMI 49.9
== END ==
PROVIDERS: Family Provider Family Medicine; PCP Family Medicine; Referring Provider Family Medicine; Visit Provider Surgery
DX: I89.0 Lymphedema, not elsewhere classified (principal); L97.822 Non-pressure chronic ulcer of other part of left lower leg with fat layer exposed; L97.812 Non-pressure chronic ulcer of other part of right lower leg with fat layer exposed; E66.01 Morbid (severe) obesity due to excess calories; Z68.41 Body mass index [BMI] 40.0-44.9, adult; I25.10 Atherosclerotic heart disease of native coronary artery without angina pectoris; L13.8 Other specified bullous disorders
CPT/HCPCS: 11042; 29581; 87070; 87075; 87077; 87147; 87186; 87205; 99203; 99213

== ENCOUNTER → 2025-04-17 08:29 | Outpatient (CLI) | payer OTHER, MEDICAID, SELFPAY ==
[2021-05-06 19:31] VITALS: BMI 49.9
== END ==
PROVIDERS: Family Provider Family Medicine; PCP Family Medicine; Referring Provider Family Medicine; Visit Provider Surgery
DX: I89.0 Lymphedema, not elsewhere classified (principal); L97.822 Non-pressure chronic ulcer of other part of left lower leg with fat layer exposed; L97.812 Non-pressure chronic ulcer of other part of right lower leg with fat layer exposed
CPT/HCPCS: 29581

== ENCOUNTER → 2025-05-15 09:34 | Outpatient (CLI) | payer OTHER, MEDICAID, SELFPAY ==
[2021-05-06 19:31] VITALS: BMI 49.9
== END ==
PROVIDERS: Family Provider Family Medicine; PCP Family Medicine; Referring Provider Family Medicine; Visit Provider Surgery
DX: I89.0 Lymphedema, not elsewhere classified (principal); L97.822 Non-pressure chronic ulcer of other part of left lower leg with fat layer exposed; L81.8 Other specified disorders of pigmentation; L98.8 Other specified disorders of the skin and subcutaneous tissue
CPT/HCPCS: 99213

== ENCOUNTER → 2025-05-17 11:01 | Outpatient (CLI) | payer OTHER, MEDICAID, SELFPAY ==
[2021-05-06 19:31] VITALS: BMI 49.9
== END ==
PROVIDERS: Family Provider Family Medicine; PCP Family Medicine; Referring Provider Family Medicine; Visit Provider Surgery
DX: I89.0 Lymphedema, not elsewhere classified (principal); L97.822 Non-pressure chronic ulcer of other part of left lower leg with fat layer exposed; L81.8 Other specified disorders of pigmentation; L98.8 Other specified disorders of the skin and subcutaneous tissue
CPT/HCPCS: 99212

== ENCOUNTER → 2025-05-21 14:44 | Outpatient (CLI) | payer OTHER, MEDICAID, SELFPAY ==
[2021-05-06 19:31] VITALS: BMI 49.9
== END ==
LOC: WC 14:45
PROVIDERS: Family Provider Family Medicine; PCP Family Medicine; Referring Provider Family Medicine; Visit Provider Surgery
DX: I89.0 Lymphedema, not elsewhere classified (principal); L97.822 Non-pressure chronic ulcer of other part of left lower leg with fat layer exposed; L97.521 Non-pressure chronic ulcer of other part of left foot limited to breakdown of skin; L97.321 Non-pressure chronic ulcer of left ankle limited to breakdown of skin; L98.8 Other specified disorders of the skin and subcutaneous tissue; L81.8 Other specified disorders of pigmentation; L13.9 Bullous disorder, unspecified; E66.9 Obesity, unspecified; Z68.41 Body mass index [BMI] 40.0-44.9, adult
CPT/HCPCS: 11042; 97602

== ENCOUNTER → 2025-05-23 09:27 | Outpatient (CLI) | payer OTHER, MEDICAID, SELFPAY ==
[2021-05-06 19:31] VITALS: BMI 49.9
== END ==
PROVIDERS: Family Provider Family Medicine; PCP Family Medicine; Referring Provider Family Medicine; Visit Provider Physician Assistant
DX: I89.0 Lymphedema, not elsewhere classified (principal); L97.822 Non-pressure chronic ulcer of other part of left lower leg with fat layer exposed; L98.8 Other specified disorders of the skin and subcutaneous tissue; L81.8 Other specified disorders of pigmentation; R21 Rash and other nonspecific skin eruption
CPT/HCPCS: 99212

== ENCOUNTER → 2025-05-27 14:16 | Outpatient (CLI) | payer OTHER, MEDICAID, SELFPAY ==
[2021-05-06 19:31] VITALS: BMI 49.9
== END ==
LOC: WC 14:23
PROVIDERS: Family Provider Family Medicine; PCP Family Medicine; Referring Provider Family Medicine; Visit Provider Surgery
DX: I89.0 Lymphedema, not elsewhere classified (principal); L97.822 Non-pressure chronic ulcer of other part of left lower leg with fat layer exposed; L97.321 Non-pressure chronic ulcer of left ankle limited to breakdown of skin; L97.521 Non-pressure chronic ulcer of other part of left foot limited to breakdown of skin; L13.9 Bullous disorder, unspecified; L98.8 Other specified disorders of the skin and subcutaneous tissue; L81.8 Other specified disorders of pigmentation; E66.9 Obesity, unspecified; Z68.41 Body mass index [BMI] 40.0-44.9, adult; Z88.1 Allergy status to other antibiotic agents; Z88.4 Allergy status to anesthetic agent; Z88.8 Allergy status to other drugs, medicaments and biological substances
CPT/HCPCS: 11042

== ENCOUNTER → 2025-05-29 14:50 | Outpatient (CLI) | payer OTHER, MEDICAID, SELFPAY ==
[2021-05-06 19:31] VITALS: BMI 49.9
== END ==
LOC: WC 15:00
PROVIDERS: Family Provider Family Medicine; PCP Family Medicine; Referring Provider Family Medicine; Visit Provider Surgery
DX: I89.0 Lymphedema, not elsewhere classified (principal); L97.822 Non-pressure chronic ulcer of other part of left lower leg with fat layer exposed; L98.8 Other specified disorders of the skin and subcutaneous tissue; R21 Rash and other nonspecific skin eruption; L81.8 Other specified disorders of pigmentation
CPT/HCPCS: 99213

== ENCOUNTER → 2025-06-03 14:29 | Outpatient (CLI) | payer OTHER, MEDICAID, SELFPAY ==
[2021-05-06 19:31] VITALS: BMI 49.9
== END ==
LOC: WC 14:32
PROVIDERS: Family Provider Family Medicine; PCP Family Medicine; Referring Provider Family Medicine; Visit Provider Surgery
DX: I89.0 Lymphedema, not elsewhere classified (principal); L97.822 Non-pressure chronic ulcer of other part of left lower leg with fat layer exposed; L97.821 Non-pressure chronic ulcer of other part of left lower leg limited to breakdown of skin; L98.8 Other specified disorders of the skin and subcutaneous tissue; R60.0 Localized edema; R42 Dizziness and giddiness
CPT/HCPCS: 11042

== ENCOUNTER → 2025-06-05 11:56 | Outpatient (CLI) | payer OTHER, MEDICAID, SELFPAY ==
[2021-05-06 19:31] VITALS: BMI 49.9
== END ==
LOC: WC 11:58
PROVIDERS: Family Provider Family Medicine; PCP Family Medicine; Referring Provider Family Medicine; Visit Provider Surgery
DX: I89.0 Lymphedema, not elsewhere classified (principal); L97.822 Non-pressure chronic ulcer of other part of left lower leg with fat layer exposed; L98.8 Other specified disorders of the skin and subcutaneous tissue; R60.0 Localized edema; L53.8 Other specified erythematous conditions; R21 Rash and other nonspecific skin eruption
CPT/HCPCS: 99213

== ENCOUNTER → 2025-06-07 08:49 | Outpatient (CLI) | payer OTHER, MEDICAID, SELFPAY ==
[2021-05-06 19:31] VITALS: BMI 49.9
== END ==
LOC: WC 08:50
PROVIDERS: Family Provider Family Medicine; PCP Family Medicine; Referring Provider Family Medicine; Visit Provider Physician Assistant
DX: I87.2 Venous insufficiency (chronic) (peripheral) (principal); L97.822 Non-pressure chronic ulcer of other part of left lower leg with fat layer exposed; L81.8 Other specified disorders of pigmentation; R21 Rash and other nonspecific skin eruption
CPT/HCPCS: 99213

== ENCOUNTER → 2025-06-12 09:20 | Outpatient (CLI) | payer OTHER, MEDICAID, SELFPAY ==
[2021-05-06 19:31] VITALS: BMI 49.9
== END ==
PROVIDERS: Family Provider Family Medicine; PCP Family Medicine; Referring Provider Family Medicine; Visit Provider Surgery
DX: I89.0 Lymphedema, not elsewhere classified (principal); L97.822 Non-pressure chronic ulcer of other part of left lower leg with fat layer exposed; L97.821 Non-pressure chronic ulcer of other part of left lower leg limited to breakdown of skin; L08.9 Local infection of the skin and subcutaneous tissue, unspecified; L98.8 Other specified disorders of the skin and subcutaneous tissue; R60.0 Localized edema; R23.4 Changes in skin texture
CPT/HCPCS: 11042; 97602; 99213

== ENCOUNTER → 2025-06-19 10:37 | Outpatient (CLI) | payer OTHER, MEDICAID, SELFPAY ==
[2021-05-06 19:31] VITALS: BMI 49.9
== END ==
LOC: WC 10:37
PROVIDERS: PCP Family Medicine; Referring Provider Family Medicine; Visit Provider Surgery
DX: I89.0 Lymphedema, not elsewhere classified (principal); L97.822 Non-pressure chronic ulcer of other part of left lower leg with fat layer exposed; R21 Rash and other nonspecific skin eruption; L97.521 Non-pressure chronic ulcer of other part of left foot limited to breakdown of skin; L13.9 Bullous disorder, unspecified
CPT/HCPCS: 11042; 97602

== ENCOUNTER → 2025-07-23 13:39 | Outpatient (CLI) | payer OTHER, MEDICAID, SELFPAY ==
[2021-05-06 19:31] VITALS: BMI 49.9
== END ==
LOC: WC 13:39
PROVIDERS: PCP Family Medicine; Referring Provider Family Medicine; Visit Provider Surgery
DX: I89.0 Lymphedema, not elsewhere classified (principal); L97.822 Non-pressure chronic ulcer of other part of left lower leg with fat layer exposed; L97.321 Non-pressure chronic ulcer of left ankle limited to breakdown of skin; L97.521 Non-pressure chronic ulcer of other part of left foot limited to breakdown of skin; L98.8 Other specified disorders of the skin and subcutaneous tissue; R60.0 Localized edema; R21 Rash and other nonspecific skin eruption
CPT/HCPCS: 11042; 97597; 99213

== ENCOUNTER → 2025-08-07 11:59 | Outpatient (CLI) | payer OTHER, MEDICAID, SELFPAY ==
[2021-05-06 19:31] VITALS: BMI 49.9
== END ==
LOC: WC 12:01
PROVIDERS: PCP Family Medicine; Referring Provider Family Medicine; Visit Provider Surgery
DX: I89.0 Lymphedema, not elsewhere classified (principal); L97.822 Non-pressure chronic ulcer of other part of left lower leg with fat layer exposed; R60.0 Localized edema; L98.8 Other specified disorders of the skin and subcutaneous tissue
CPT/HCPCS: 11042

== ENCOUNTER → 2025-08-21 09:18 | Outpatient (CLI) | payer OTHER, MEDICAID, SELFPAY ==
[2021-05-06 19:31] VITALS: BMI 49.9
== END ==
LOC: WC 09:18
PROVIDERS: PCP Family Medicine; Referring Provider Family Medicine; Visit Provider Surgery
DX: I89.0 Lymphedema, not elsewhere classified (principal); L97.822 Non-pressure chronic ulcer of other part of left lower leg with fat layer exposed; R60.0 Localized edema; L98.8 Other specified disorders of the skin and subcutaneous tissue; L13.9 Bullous disorder, unspecified
CPT/HCPCS: 11042; 99213

== ENCOUNTER → 2025-09-04 09:53 | Outpatient (CLI) | payer OTHER, MEDICAID, SELFPAY ==
[2021-05-06 19:31] VITALS: BMI 49.9
== END ==
LOC: WC 09:53
PROVIDERS: PCP Family Medicine; Referring Provider Family Medicine; Visit Provider Surgery
DX: L97.822 Non-pressure chronic ulcer of other part of left lower leg with fat layer exposed (principal); I89.0 Lymphedema, not elsewhere classified; E66.9 Obesity, unspecified; Z68.41 Body mass index [BMI] 40.0-44.9, adult
CPT/HCPCS: 11042; 87070; 87075; 87077; 87147; 87186; 87205

== ENCOUNTER → 2025-09-18 12:53 | Outpatient (CLI) | payer OTHER, MEDICAID, SELFPAY ==
[2021-05-06 19:31] VITALS: BMI 49.9
== END ==
LOC: WC 12:58
PROVIDERS: PCP Family Medicine; Referring Provider Family Medicine; Visit Provider Surgery
DX: L97.822 Non-pressure chronic ulcer of other part of left lower leg with fat layer exposed (principal); I89.0 Lymphedema, not elsewhere classified; I25.10 Atherosclerotic heart disease of native coronary artery without angina pectoris; E66.9 Obesity, unspecified; Z68.41 Body mass index [BMI] 40.0-44.9, adult
CPT/HCPCS: 11042; 99213